=== PATIENT | male | born 1965 | race Caucasian/White ===

== ENCOUNTER 2024-12-20 07:34 | Outpatient (CLI) | payer BC, SELFPAY ==
--- OUTSIDE RECORDS SUMMARY | 2024-10-30 18:41 | XMS_ITS | Encounter Summary ---
Author Organization [facility] Address [address] [place] [address] Care Team Providers Care [employer] Supervisor Name Role Phone Provider, No Known Primary Care Provider Unavail able Reason for Referral * Diagnostic Imaging (Routine) - Closed Specialty Diagnoses / Procedures Referred By Contac t Referred To Contact Diagnoses Contusion of left lower extremity, initial encounter Swelling of left lower extremity Procedures Duplex Venous Lower Extremity - Left CAR Wang Alatorre MD [address] [place] [address] Phone: tel: fax: Referral ID Status Reason Start Date Expiration Date Visits Re quested Visits Authorized [id number] Closed 10/30/2024 01/29/2026 1 1 Reason for Visit * Reason Comments Leg Swelling Encounter Details Date Type Department Care Team (Late st Contact Info) Description 10/30/2024 6:41 PM EDT - 10/30/2024 7:46 PM EDT Emergency [facility] [address] [place] [id number] Wang Alatorre MD [address] [place] [address] Contusion of left lower extremity, initial encounter (Primary Dx); Swelling of left lower extremity; History of stroke Discharge Disposition: Home or Self Care Social History Tobacco Use Types Packs/Day Years Used Date Smoking Tobacco: Every Day Cigarettes Smokeless Tobacco: Current Snuff Comments:one pack every 3-4 days. smoked for 40 years Alcohol Use Standard Drinks/Week Comments Yes 0 (1 standard drink = 0.6 oz pur e alcohol) rare AUDIT-C Answer Date Recorded Q1: How often do you have a drink containing alc ohol? Monthly or less 10/20/2024 Q2: How many drinks containi ng alcohol do you have on a typical day when you are drinking? 1 or 2 10/20/2024 Q3: How often do you have si x or more drinks on one occasion? Never 10/20/2024 Abuse Screen Answer Date Recorded Feels Unsafe at Home or Work/School no 10/30/2024 Feels Threatened by Someone no 10/13 Does Anyone Try to Keep You From Having Contact with Others or Doing Things Outside Your Home? no 10/30/2024 Physical Signs of Abuse Present no 10/30/2024 Housing Stability Answer Date Recorded Current Living Arrangements home 10/2024 Potentially Unsafe Housing Conditions Not on radha e 10/20/2024 Family and Community Support Answer Rosendo e Recorded Help with Day-to-Day Activities Not on file 12/23/2022 Lonely or Isolated Not on file 12/23/2022 Employment Answer Date Recorded Do you want help finding or keeping work or a darcy b? Not on file 12/23/2022 Disabilities Answer Date Recorded Difficulty Concentrating, Remembering or Making Decisions no 10/20/2024 Difficulty Managing Errands Independently no 10/20/2024 Education Answer Date Recorded Help with school or training? Not on file Preferred Language Not on file 12/23/2022 Sex and Gender Information Value Date Recorded Sex Assigned at Not on file Legal Sex Male 11:47 AM EDT Gender Identity Not on file Sexual Orientation Not on file documented as of this encounter Last Filed Vital Signs Vital Sign Reading Time Taken Comments Blood Pressure 151/96 10/30/2024 6:29 PM EDT Pulse 75 10/30/2024 6:29 PM EDT Temperature 37 C (98.6 F) 10/30/2024 6:29 PM EDT Respiratory Rate 16 10/30/2024 6:29 PM EDT Oxygen Saturation 99% 10/30/2024 6:29 PM EDT Inhaled Oxygen Concentration - - Weight 111 kg (245 lb) 10/30/2024 6:29 PM EDT Height 177.8 cm (5' 10 ) 10/30/2024 6:29 PM EDT Body Mass Index 35.15 10/30/2024 6:29 PM EDT documented in this encounter Functional Status * Calculated C-SSRS Risk Score (Lifetime/Recent) Answer Date of Assessment Author No Risk Indicated 10/30/2024 6:29 PM EDT Etta Tran RN * Norris Suicide Severity Rating Scale (Screener/Recent Self-Report) Question Answer Date of Assessment Author 1. Wish to be (Past 1 Month) No 025 6:29 PM EDT Fernie Tran RN 2. Non-Specific Active Suici jolene Thoughts (Past 1 Month) No 10/30/2024 6:29 PM EDT Fernie Tran RN 6. Suicidal Behavior (Lifetime) No 6:29 PM EDT Fernie Tran RN documented as of this encounter Discharge Instructions * Discharge Instructions* Wang Alatorre MD - 10/30/2024 7:34 PM EDT If you have a Duplex Venous study ordered and have not received a phone call to schedule this test by 10:00 am tomorrow, please call. [phone] (Wednesday - Wednesday) [phone] (Weekends) * Attachments The following attachments cannot be sent through Care Everywhere. * Contusion (Chilean) documented in this encounter Medications at Time of Discharge aspirin 81 MG EC tablet Take 1 tablet by mouth Daily. 30 tablet 1 10/20/2024 rosuvastatin (Crestor) 20 MG tablet Take 2 tablets by mouth Every Night. 180 tablet 10/20/2024 documented as of this encounter ED Notes * Wang Alatorre MD - 10/30/2024 7:46 PM EDT Subjective History of Present Illness 59-year-old male presents for evaluation of leg discoloration. Of note, I did a thorough review of the patient's records prior to evaluating him. He was recently admitted at the hospital here at our facility from October 19 through October 20 for acute ischemic stroke. He received TNK. Fortunately, he was discharged without any significant residual deficits. This morning, after waking up he noted discoloration and what appeared to be bruising to the medial aspect of his left foot and heel region.He was concerned and as a result came here to the emergency department to be evaluated. He denies any pain to the area. He denies any preceding injury or trauma. He is unsure as to what may have caused the discoloration to occur. He is ambulatory. Review of Systems Skin: Positive for color change. All other systems reviewed and are negative. Past Medical History: Diagnosis Date Arthritis Back pain Cataracts, bilateral Coronary artery disease Diverticulitis GERD (gastroesophageal reflux disease) High triglycerides History of heart attack History of kidney stones History of skull fracture U[place]ER [place] (hard of hearing) Leaky heart valve Smoker Wears glasses Allergies Allergen Reactions Benadryl [Diphenhydramine Hcl] Anaphylaxis Latex Other (See Comments) Added based on information entered during case entry, please review and add reactions, type, and severity as needed-blood blisters Past Surgical History: Procedure Laterality Date COLON RESECTION N/A 12/29/2017 Procedure: OPEN LOW ANTERIOR COLON RESECTION; Surgeon: Armen Peralta MD; Location: [facility]; Service: General COLON SURGERY times 2 COLONOSCOPY 11-26-17 KIDNEY SURGERY Left Family History Problem Relation Age of Onset Diabetes Mother COPD Mother Emphysema Mother Heart disease Mother Asthma Mother Hypertension Mother Heart failure Father No Known Problems Sister No Known Problems Brother No Known Problems Maternal Grandmother No Known Problems Maternal Grandfather No Known Problems Paternal Grandmother No Known Problems Paternal Grandfather Social History Socioeconomic History Marital status: Tobacco Use Smoking status: Every Day Types: Cigarettes Smokeless tobacco: Current Types: Snuff Tobacco comments: one pack every 3-4 days. smoked for 40 years Vaping Use Vaping status: Never Used Substance and Sexual Activity Alcohol use: Yes Comment: rare Drug use: No Sexual activity: Defer Objective Physical Exam Vitals and nursing note reviewed. Constitutional: General: He is not in acute distress. Appearance: He is well-developed. He is obese. He is not diaphoretic. Comments: Nontoxic-appearing male HENT: Head: Normocephalic and atraumatic. Neck: Vascular: No JVD. Cardiovascular: Rate and Rhythm: Normal rate and regular rhythm. Heart sounds: Normal heart sounds. No murmur heard. No friction rub. No gallop. Pulmonary: Effort: Pulmonary effort is normal. No respiratory distress. Breath sounds: Normal breath sounds. No wheezing or rales. Abdominal: General: Bowel sounds are normal. There is no distension. Palpations: Abdomen is soft. There is no mass. Tenderness: There is no abdominal tenderness. There is no guarding. Musculoskeletal: General: Normal range of motion. Comments: Minimal soft tissue swelling noted to distal aspect of left lower leg and foot when compared to contralateral side on visual inspection, negative Homans sign, no palpable cords Skin: Comments: Mild bruising and skin discoloration noted to medial aspect of left heel, no warmth present, no purulent drainage, no crepitus, no pain out of proportion to exam Good distal perfusion to the left foot, no coolness to touch Neurological: Mental Status: He is alert and oriented to person, place, and time. Comments: Awake, alert, and oriented x3, clear and fluent speech, no ataxia or dysmetria, normal gait, neurovascularly intact distally in all fours with bounding distal pulses and normal sensation, 5out of 5 strength in all fours, no cranial nerve deficits noted with cranial nerves II through XII grossly intact Psychiatric: Mood and Affect: Mood normal. Thought Content: Thought content normal. Judgment: Judgment normal. Procedures ED Course ED Course as of 10/30/245 WedOct 30, [id number] 59-year-old male presents for evaluation of leg discoloration. Of note, the patient was admitted to the hospital here at our facility from October 19 through October 20 for acute ischemic stroke. He did receive TNK. He fortunately was discharged with no significant residual deficits. This morning, he noted discoloration and what appeared to be bruising to the medial aspect of his left foot. Hewas concerned and as result came here to the ED to be evaluated. He denies any pain to the area. Nopreceding trauma or injury. On arrival, he is very well-appearing. No focal neurological deficits present. Left lower extremity is neurovascularly intact distally with bounding distal pulses and normal sensation noted. Good distal perfusion noted. His foot is not cool to touch. He does have mild bruising and discoloration noted to the medial aspect of his left heel. There is no warmth present. Nopurulent drainage. No crepitus. No pain out of portion to exam. No exam findings to suggest infectious etiology. Labs interpreted independently by me are bland/unrevealing. DVT is still on the differential diagnosis. Unfortunately, I am unable to obtain a Doppler ultrasound at this hour. As a result, the patient was given 1 dose of Lovenox and an order was placed for him to return to the emergency department tomorrow for a formal ultrasound to rule out DVT. We discussed other potential etiologies for the discoloration. Doubt emergent central process at this time. Doubt arterial insufficiency. No exam or historical findings to suggest compartment syndrome. He will follow-up tomorrow as directed. Agreeable with plan and given appropriate strict return precautions. [DD] ED Course User Index [DD] Wang Alatorre MD Recent Results (from the past 24 hours) Comprehensive Metabolic Panel Collection Time: 10/30/24 6:55 PM Specimen: Blood Result Value Ref Range Glucose 102 (H) 65 - 99 mg/dL BUN 9.4 6.0 - 20.0 mg/dL Creatinine 1.08 0.76 - 1.27 mg/dL Sodium 139 136 - 145 mmol/L Potassium 4.2 3.5 - 5.2 mmol/L Chloride 105 98 - 107 mmol/L CO2 23.5 22.0 - 29.0 mmol/L Calcium 9.1 8.6 - 10.5 mg/dL Total Protein 6.7 6.0 - 8.5 g/dL Albumin 4.1 3.5 - 5.2 g/dL ALT (SGPT) 24 1 - 41 U/L AST (SGOT) 22 1 - 40 U/L Alkaline Phosphatase 68 39 - 117 U/L Total Bilirubin 0.3 0.0 - 1.2 mg/dL Globulin 2.6 gm/dL A/G Ratio 1.6 g/dL BUN/Creatinine Ratio 8.7 7.0 - 25.0 Anion Gap 10.5 5.0 - 15.0 mmol/L eGFR 79.1 >60.0 mL/min/1.73 CBC Auto Differential Collection Time: 10/30/24 6:55 PM Specimen: Blood Result Value Ref Range WBC 11.29 (H) 3.40 - 10.80 10*3/mm3 RBC 4.88 4.14 - 5.80 10*6/mm3 Hemoglobin 16.0 13.0 - 17.7 g/dL Hematocrit 46.7 37.5 - 51.0 % MCV 95.7 79.0 - 97.0 fL MCH 32.8 26.6 - 33.0 pg MCHC 34.3 31.5 - 35.7 g/dL RDW 11.5 (L) 12.3 - 15.4 % RDW-SD 40.4 37.0 - 54.0 fl MPV 10.5 6.0 - 12.0 fL Platelets 197 140 - 450 10*3/mm3 Neutrophil % 64.7 42.7 - 76.0 % Lymphocyte % 24.4 19.6 - 45.3 % Monocyte % 8.2 5.0 - 12.0 % Eosinophil % 1.7 0.3 - 6.2 % Basophil % 0.7 0.0 - 1.5 % Immature Grans % 0.3 0.0 - 0.5 % Neutrophils, Absolute 7.31 (H) 1.70 - 7.00 10*3/mm3 Lymphocytes, Absolute 2.75 0.70 - 3.10 10*3/mm3 Monocytes, Absolute 0.93 (H) 0.10 - 0.90 10*3/mm3 Eosinophils, Absolute 0.19 0.00 - 0.40 10*3/mm3 Basophils, Absolute 0.08 0.00 - 0.20 10*3/mm3 Immature Grans, Absolute 0.03 0.00 - 0.05 10*3/mm3 nRBC 0.0 0.0 - 0.2 /100 WBC Note: In addition to lab results from this visit, the labs listed above may include labs taken at another facility or during a different encounter within the last 24 hours. Please correlate lab timeswith ED admission and discharge times for further clarification of the services performed during this visit. No orders to display Vitals: 10/30/24 1829 BP: 151/96 BP Location: Left arm Patient Position: Sitting Pulse: 75 Resp: 16 Temp: 98.6 ??F (37 ??C) SpO2: 99% Weight: 111 kg (245 lb) Height: 177.8 cm (70 ) Medications enoxaparin sodium (LOVENOX) syringe 105 mg (105 mg Subcutaneous Given 10/30/241938) ECG/EMG Results (last 24 hours) No results found for the last 24 hours. No orders to display Medical Decision Making Problems Addressed: Contusion of left lower extremity, initial encounter: complicated acute illness or injury History of stroke: complicated acute illness or injury Swelling of left lower extremity: complicated acute illness or injury Amount and/or Complexity of Data Reviewed Labs: ordered. Risk Prescription drug management. Final diagnoses: Contusion of left lower extremity, initial encounter Swelling of left lower extremity History of stroke ED Disposition ED Disposition ED Disposition Discharge Condition Stable Comment -- PATIENT CONNECTION - [place] [phone] In 1 week Medication List No changes were made to your prescriptions during this visit. Wang Alatorre MD 10/30/24 [id number] documented in this encounter Plan of Treatment Upcoming Encounters Date Type Department Care Team (Late st Contact Info) Description 01/17/2025 10:00 AM EST Office Visit [facility] [address] [place] [address] Crystal Pederson, SOUR BLE[employer]ING PLEATER [address] [facility] [address] [address] documented as of this encounter Procedures Procedure Name Priority Date/Time Associated Diagnosis Comments CBC WITH AUTO DIFFERENTIAL STAT 10/30/2024 6:55 PM EDT CBC AND DIFFERENTIAL STAT 10/30/2024 6:55 PM EDT COMPREHENSIVE METABOLIC PANEL STAT 10/30/2024 6:55 PM EDT documented in this encounter Results * Duplex Venous Lower Extremity - Left CAR (10/31/2024 11:15 AM EDT) Right Common Femoral Spont Y Right Common Femoral Phasic Y Right Common Femoral Augment Y Left Common Femoral Spont Y Left Common Femoral Phasic Y Left Common Femoral Compress C Left Common Femoral Augment Y Left Saphenofemoral Junction Spont Y Left Saphenofemoral Junction Phasic Y Left Saphenofemoral Junction Compress C Left Saphenofemoral Junction Augment Y Left Profunda Femoral Compress C Left Proximal Femoral Spont Y Left Proximal Femoral Phasic Y Left Proximal Femoral Compress C Left Proximal Femoral Augment Y Left Mid Femoral Spont Y Left Mid Femoral Phasic Y Left Mid Femoral Compress C Left Mid Femoral Augment Y Left Distal Femoral Spont Y Left Distal Femoral Phasic Y Left Distal Femoral Compress C Left Distal Femoral Augment Y Left Popliteal Spont Y Left Popliteal Phasic Y Left Popliteal Compress C Left Popliteal Augment Y Left Posterior Tibial Compress C Left Peroneal Compress C Left Gastronemius Compress C Left Greater Saph AK Compress C Left Greater Saph BK Compress C Left Lesser Saph Compress C Anatomical Region Laterality Modality Ultrasound Narrative 10/31/2024 2:25 PM EDT Normal left lower extremity venous duplex scan. Study Impression Left Common Femoral: No deep vein thrombosis noted. Left Saphenofemoral Junction: No superficial thrombophlebitis noted. Left Proximal Femoral: No deep vein thrombosis noted. Left Mid Femoral: No deep vein thrombosis noted. Left Distal Femoral: No deep vein thrombosis noted. Left Popliteal: No deep vein thrombosis noted. Left Posterior Tibial: No deep vein thrombosis noted. Left Peroneal: No deep vein thrombosis noted. Left Gastrocnemius: No deep vein thrombosis noted. Left Great Saphenous Above Knee: No superficial thrombophlebitis noted. Left Great Saphenous Below Knee: No superficial thrombophlebitis noted. Study Findings - Left Left sided additional findings: All left lower extremity deep and superficial veins appear patent and compressible during time of exam. No prior exams for comparison. Additional Study Details The study is technically good for diagnosis. us Wang Alatorre MD CV VASCULAR ORDERABLES Fin al Result * (ABNORMAL) CBC Auto Differential (10/30/2024 6:55 PM EDT) WBC 11.29(H) 3.40 - 10.80 10*3/mm3 10/30/2024 7:08 PM EDT [facility] RBC 4.88 4.14 - 5.80 10*6/mm3 10/30/2024 7:08 PM EDT [facility] Hemoglobin 16.0 13.0 - 17.7 g/dL 10/30/2024 7:08 PM EDT [facility] Hematocrit 46.7 37.5 - 51.0 % 10/30/2024 7:08 PM EDT [facility] MCV 95.7 79.0 - 97.0 fL 10/30/2024 7:08 PM EDT [facility] MCH 32.8 26.6 - 33.0 pg 10/30/2024 7:08 PM EDT [facility] MCHC 34.3 31.5 - 35.7 g/dL 10/30/2024 7:[facility] RDW 11.5(L) 12.3 - 15.4 % 10/30/2024 7:[facility] RDW-SD 40.4 37.0 - 54.0 fl 10/30/2024 7:08 [facility] MPV 10.5 6.0 - 12.0 fL 10/30/2024 7:08 [facility] Platelets 197 140 - 450 10*3/mm3 10/30/2024 7:08 [facility] Neutrophil % 64.7 42.7 - 76.0 % 10/30/2024 7:08 PM EDT [facility] Lymphocyte % 24.4 19.6 - 45.3 % 10/30/2024 7:08 [facility] Monocyte % 8.2 5.0 - 12.0 % 10/30/2024 7:08 PM EDT [facility] Eosinophil % 1.7 0.3 - 6.2 % 10/30/2024 7:08 PM EDT [facility] Basophil % 0.7 0.0 - 1.5 % 10/30/2024 7:08 PM EDT [facility] Immature Grans % 0.3 0.0 - 0.5 % 10/30/2024 7:08 PM EDT [facility] Neutrophils, Absolute 7.31(H) 1.70 - 7.00 10*3/mm3 10/30/2024 7:08 PM EDT [facility] Lymphocytes, Absolute 2.75 0.70 - 3.10 10*3/mm3 10/30/2024 7:08 PM EDT [facility] Monocytes, Absolute 0.93(H) 0.10 - 0.90 10*3/mm3 10/30/2024 7:08 PM EDT [facility] Eosinophils, Absolute 0.19 0.00 - 0.40 10*3/mm3 10/30/2024 7:08 PM EDT [facility] Basophils, Absolute 0.08 0.00 - 0.20 10*3/mm3 10/30/2024 7:08 PM EDT [facility] Immature Grans, Absolute 0.03 0.00 - 0.05 10*3/mm3 10/30/2024 7:08 PM EDT [facility] nRBC 0.0 0.0 - 0.2 /100 WBC 10/30/2024 7:08 PM EDT [facility] Blood Venipuncture / Unknown 10/30/2024 6:55 PM EDT 10/30/2024 7:03 PM EDT Wang Alatorre MD LAB BLOOD ORDERABLES Final Result [facility]
[address] [place] [address], * (ABNORMAL) Comprehensive Metabolic Panel (10/30/2024 6:55 PM EDT) Glucose 102(H) 65 - 99 mg/dL 10/30/2024 7:30 PM EDT [facility] BUN 9.4 6.0 - 20.0 mg/dL 10/30/2024 7:30 PM EDT [facility] Creatinine 1.08 0.76 - 1.27 mg/dL 10/30/2024 7:30 PM EDT [facility] Sodium 139 136 - 145 mmol/L 10/30/2024 7:30 PM EDT [facility] Potassium 4.2 3.5 - 5.2 mmol/L 10/30/2024 7:30 PM T [facility] Comment:Specimen hemolyzed. Result may be falsely elevated. Chloride 105 98 - 107 mmol/L 10/30/2024 7:30 PM EDT [facility] CO2 23.5 22.0 - 29.0 mmol/L 10/30/2024 7:30 PM EDT [facility] Calcium 9.1 8.6 - 10.5 mg/dL 10/30/2024 7:30 PM EDT [facility] Total Protein 6.7 6.0 - 8.5 g/dL 10/30/2024 7:30 PM EDT [facility] Albumin 4.1 3.5 - 5.2 g/dL 10/30/2024 7:30 PM EDT [facility] ALT (SGPT) 24 1 - 41 U/L 10/30/2024 7:30 PM EDT [facility] AST (SGOT) 22 1 - 40 U/L 10/30/2024 7:30 PM T [facility] Comment:Specimen hemolyzed. Result may be falsely elevated. Alkaline Phosphatase 68 39 - 117 U/L 10/30/2024 7:30 PM EDT [facility] Total Bilirubin 0.3 0.0 - 1.2 mg/dL 10/30/2024 7:30 PM EDT [facility] Globulin 2.6 gm/dL 10/30/2024 7:30 PM EDT [facility] Comment:Calculated Result A/G Ratio 1.6 g/dL 10/30/2024 7:30 PM EDT [facility] BUN/Creatinine Ratio 8.7 7.0 - 25.0 10/30/2024 7:30 PM T [facility] Anion Gap 10.5 5.0 - 15.0 mmol/L 10/30/2024 7:30 PM EDT [facility] eGFR 79.1 >60.0 mL/min/1.7 3 10/30/2024 7:30 PM EDT [facility] Blood Venipuncture / Unknown 10/30/2024 6:55 PM EDT 10/30/2024 7:04 PM EDT Narrative [facility] - 10/30/2024 7:30 PM EDT GFR Categories in Chronic Kidney Disease (CKD) GFR Category GFR (mL/min/1.73) Interpretation G1 90 or greater Normal or high (1) G2 60-89 Mild decrease (1) G3a 45-59 Mild to moderate decrease G3b 30-44 Moderate to severe decrease G4 15-29 Severe decrease G5 14 or less Kidney failure (1)In the absence of evidence of kidney disease, neither GFR category G1 or G2 fulfill the criteria for CKD. eGFR calculation 2020 CKD-EPI creatinine equation, which does not include race as a factor Wang Alatorre MD LAB BLOOD ORDERABLES Final Result [facility]
[address] [place] [address], documented in this encounter Visit Diagnoses Diagnosis Contusion of left lower extremity, initial encounter- Primary Swelling of left lower extremity History of stroke Transient ischemic attack (TIA), and cerebral infarction without residual deficits Contusion of left lower extremity, initial encounter Swelling of left lower extremity documented in this encounter Administered Medications Inactive Administered Medications - up to 3 most recent administrations Medication Order MAR Action Action Date Dose Rate Site enoxaparin sodium (LOVENOX) syringe 105 mg 105 mg (rounded from 111 mg = 1 mg/kg 111 kg), Subcutaneous, Once, On Wed10/30/24 at 1948, For 1 dose, Give subcutaneous in abdomen only. Do not massage site after injection., Indications: DVT/PE (active thrombosis)Indications:DV T/PE (active thrombosis) Given 10/30/2024 7:39 PM EDT 105 mg Right Upper Abdomen documented in this encounter Active and Recently Administered Medications Times are shown in EDT. Scheduled Medication Order 10/28/2024 10/29/2024 10/30/2024 enoxaparin sodium (LOVENOX) syringe 105 mg (COMPLETED) 105 mg (rounded from 111 mg = 1 mg/kg 111 kg), Subcutaneous, Once, On Wed10/30/24 at 1948, For 1 dose, Give subcutaneous in abdomen only. Do not massage site after injection., Indications: DVT/PE (active thrombosis) 1938 (Given - Provid er: Ibeth Yousif, RN) documented in this encounter Care Teams [employer] Supervisor Relationship Specialty Start Date End Date Provider, [place] [address] PCP - General 01/19/23 documented as of this encounter
--- OUTSIDE RECORDS SUMMARY | 2024-10-31 10:50 | XMS_ITS | Encounter Summary ---
Author Organization [facility] Address [address] [place] [address] Care Team Providers Care Metal Control Coordinator Name Role Phone Provider, No Known Primary Care Provider Unavail able Reason for Referral * Diagnostic Imaging (Routine) - Closed Specialty Diagnoses / Procedures Referred By Elviraac t Referred To Contact Diagnoses Contusion of left lower extremity, initial encounter Swelling of left lower extremity Procedures Duplex Venous Lower Extremity - Left CAR Wang Alatorre MD [address] [place] [address] Phone: tel: fax: Referral ID Status Reason Start Date Expiration Date Visits Re quested Visits Authorized Closed 10/30/2024 01/29/2026 1 1 Reason for Visit * Diagnostic Imaging (Routine) - Closed Specialty Diagnoses / Procedures Referred By Fabiola mesa Referred To Contact Diagnoses Contusion of left lower extremity, initial encounter Swelling of left lower extremity Procedures Duplex Venous Lower Extremity - Left CAR Wang Alatorre MD [address] [place] [address] Phone: tel: fax: Referral ID Status Reason Start Date Expiration Date Visits Re quested Visits Authorized Closed 10/30/2024 01/29/2026 1 1 Encounter Details Date Type Department Care Team (Late st Contact Info) Description 10/31/2024 10:50 AM EDT - 10/31/2024 11:59 PM EDT Hospital Encounter [facility] [address] [facility] [address] [place] [address] Wang Alatorre MD [address] [place] [id number] Contusion of left lower extremity, initial encounter; Swelling of left lower extremity Discharge Disposition: Home or Self Care Social [...] on file documented as of this encounter Medications at Time of Discharge aspirin 81 MG EC tablet Take 1 tablet by mouth Daily. 30 tablet 1 10/20/2024 rosuvastatin (Crestor) 20 MG tablet Take 2 tablets by mouth Every Night. 180 tablet 10/20/2024 documented as of this encounter Plan of Treatment Upcoming Encounters Date Type Department Care Team (Late st Contact Info) Description 01/17/2025 10:00 AM EST Office Visit [facility] [address] [facility] [address] [place] [address] [address] Pederson, MARGARET [address] [facility] [address] [place] [id number] documented as of this encounter Procedures Procedure Name Priority Date/Time Associated Diagnosis Comments DUPLEX VENOUS LOWER EXTREMITY LEFT CAR Routine 10/31/2024 11:15 AM EDT Contusion of left lower extremity, initial encounter Swelling of left lower extremity documented in this encounter Results * Duplex [...] MD CV VASCULAR ORDERABLES Fin al Result documented in this encounter Visit Diagnoses Diagnosis Contusion of left lower extremity, initial encounter Swelling of left lower extremity documented in this encounter Care Teams Metal Control Coordinator Relationship Specialty Start Date End Date Provider, [place] [address] PCP - General 01/19/23 documented as of this encounter
--- OUTSIDE RECORDS SUMMARY | 2024-12-20 07:38 | XMS_ITS | Clinical Summary ---
Author Organization [facility] Address [address] [place] [address] Care Team Providers Care Teacher Aide Clerical Name Role Phone Provider, No Known Primary Care Provider Unavail able Allergies Active Allergy Reactions Criticality Noted Date Comments Diphenhydramine Hcl Anaphylaxis High 12/29/2017 Latex Other (See Comments) 12/23/2017 Added based on information entered during case entry, please review and add reactions, type, and severity as needed-blood blisters Medications aspirin 81 MG EC tablet Take 1 tablet by mouth Daily. 30 tablet 1 10/20/2024 Active rosuvastatin (Crestor) 20 MG tablet Take 2 tablets by mouth Every Night. 180 tablet 10/20/2024 Active Active Problems Problem Noted Date Diagnosed Date Palpitations 07/10/2020 Overview (07/10/2020): ? Afib at age 19 yo 30-day event monitor 06/01/2020: 1 for 19 days. No arrhythmias. Patient symptoms associated with sinus. Syncope and collapse 06/04/2020 Overview (06/04/2020): Echocardiogram 06/03/2020: EF 72%, RVSP 31 mmHg, mild dilation of the aortic root, grade 1 diastolic dysfunction, no significant valvular disease. Leukocytosis 12/30/2017 Acute postoperative pain 12/30/2017 Diverticulitis 12/29/2017 S/P open sigmoid resection 12/29/2017 Prediabetes 12/29/2017 Abnormal EKG 12/27/2017 Tobacco abuse 12/27/2017 Class 2 obesity in adult 12/27/2017 Coronary artery disease Overview (07/10/2020): Reported KS 30's. No hx of interventions. Myocardial perfusion stress test 06/14/2020: No ischemia, EF 68% Echo 06/01/20: with normal EF, mild dilation of aortic root, grade 1 diastolic dysfunction. No significant valvular disease. GERD (gastroesophageal reflux disease) Resolved Problems Problem Noted Date Diagnosed Date Resolved Date Acute CVA (cerebrovascular accident) 10/19/2024 10/20/2024 Encounters Date Type Department Care Team Description 10/31/2024 10:50 AM EDT - 10/31/2024 11:59 PM EDT Hospital Encounter [facility]VAS[facility] OUTPATIENT [facility] [address] [facility] [address] [place] [address] Wang Alatorre MD Contusion of left lower extremity, initial encounter; Swelling of left lower extremity Discharge Disposition: Home or Self Care 10/30/2024 6:41 PM EDT - 10/30/2024 7:46 PM EDT Emergency [facility] EMERGENCY DEPARTMENT [address] [place] [id number] Wang Alatorre MD Contusion of left lower extremity, initial encounter (Primary Dx); Swelling of left lower extremity; History of stroke Discharge Disposition: Home or Self Care 10/30/2024 Travel 10/19/2024 7:33 AM EDT - 10/20/2024 2:40 PM EDT Hospital Encounter [facility] 2B ICU [address] [place] [address] Wang Alatorre MD Tzouanakis, Alexander E, MD Acute ischemic stroke (Primary Dx) Discharge Disposition: Home or Self Care 10/19/2024 Travel from Last 3 Months Family History Medical History Relation Name Comments No Known Problems Brother Heart failure Father No Known Problems Maternal Grandfather No Known Problems Maternal Grandmother Asthma Mother COPD Mother Diabetes Mother Emphysema Mother Heart disease Mother Hypertension Mother No Known Problems Paternal Grandfather No Known Problems Paternal Grandmother No Known Problems Sister Relation Name Status Comments Brother Alive Father Maternal Grandfather Maternal Grandmother Mother Alive Paternal Grandfather Paternal Grandmother Sister Alive Social History Tobacco Use Types Packs/Day Years [...] on file Sexual Orientation Not on file Last Filed Vital Signs Vital Sign Reading [...] Mass Index 35.15 10/30/2024 6:29 PM EDT Plan of Treatment Upcoming Encounters Date Type Department Care Team (Late st Contact Info) Description 01/17/2025 10:00 AM EST Office Visit [facility] NEUROLOGY [address] [facility] [address] [place] [address] Crystal Pederson, ROLL CARRIER [address] [facility] [address] [address] Health Maintenance Due Date Last Done Comments Pneumococcal Vaccine 50+ (1 of 2 - PCV) 02/03/1984 TDAP/TD VACCINES (1 - Tdap) 02/03/1984 COLOGUARD 2010 COLON CANCER SCREENING [address] COLONOGRAPHY 2010 FECAL OCCULT BLOOD TEST 2010 FIT Testing (1 year) 2010 ZOSTER VACCINE (1 of 2) 2015 ANNUAL PHYSICAL 12/23/2017 HEPATITIS C SCREENING 12/23/2017 INFLUENZA VACCINE 10/13/2024 COLONOSCOPY 02/11/2033 02/11/2023 COLORECTAL CANCER SCREENING 02/11/2033 Procedures Procedure Name Priority Date/Time Associated Diagnosis Comments DUPLEX VENOUS LOWER EXTREMITY LEFT CAR Routine 10/31/2024 11:15 AM EDT Contusion of left lower extremity, initial encounter Swelling of left lower extremity CBC AND DIFFERENTIAL STAT 10/30/2024 6:55 PM EDT CBC WITH AUTO DIFFERENTIAL STAT 10/30/2024 6:55 PM EDT COMPREHENSIVE METABOLIC PANEL STAT 10/30/2024 6:55 PM EDT POCT GLUCOSE FINGERSTICK Routine 10/20/2024 11:52 AM EDT XR CHEST 1 VW Routine 10/20/2024 9:[address] HEAD WO CONTRAST Routine 10/20/2024 8 :33 AM EDT POCT GLUCOSE FINGERSTICK Routine 10/20/2024 5:09 AM EDT CBC AND DIFFERENTIAL Routine 10/20/2024 2:18 AM EDT CBC WITH AUTO DIFFERENTIAL Routine 10/20/2024 2:18 AM EDT BASIC METABOLIC PANEL Routine 10/20/2024 2:18 AM EDT LIPID PANEL Routine 10/20/2024 2:18 AM EDT HEMOGLOBIN A1C Routine 10/20/2024 2:18 AM EDT MRI BRAIN WO CONTRAST Routine 10/20/2024 1:02 AM EDT POCT GLUCOSE FINGERSTICK Routine 10/19/2024 11:09 PM EDT POCT GLUCOSE FINGERSTICK Routine 10/19/2024 8:06 PM EDT POCT GLUCOSE FINGERSTICK Routine 10/19/2024 11:43 AM EDT ECHO COMPLETE W/ DOPPLER AND COLOR FLOW Routine 10/19/2024 11:41 AM EDT SCANNED - TELEMETRY 10/19/2024 8 :41 AM EDT ECG 12-LEAD STAT 10/19/2024 8:39 AM EDT URINALYSIS W/ CULTURE IF INDICATED STAT 10/19/2024 8:[address] ABDOMEN PELVIS W CONTRAST STAT 10/19/2024 8:[address] ANGIOGRAM CHEST W WO CONTRAST STAT 10/19/2024 8:[address] CEREBRAL PERFUSION W WO CONTRAST STAT 10/19/2024 8:[address] ANGIOGRAM NECK STAT 10/19/2024 8:[address] ANGIOGRAM HEAD W AI ANALYSIS OF LVO STAT 10/19/2024 8:13 AM EDT LIGHT BLUE TOP STAT 10/19/2024 7:48 AM EDT KHAN TOP STAT 10/19/2024 7:48 AM EDT GOLD TOP - SST STAT 10/19/2024 7:48 AM EDT LAVENDER TOP STAT 10/19/2024 7:48 AM EDT DK GREEN TOP STAT 10/19/2024 7:48 AM EDT CBC AND DIFFERENTIAL STAT 10/19/2024 7:48 AM EDT MAGNESIUM STAT 10/19/2024 7:48 AM EDT TSH RFX ON ABNORMAL TO FREE T4 STAT 10/19/2024 7:48 AM EDT COMPREHENSIVE METABOLIC PANEL STAT 10/19/2024 7:48 AM EDT CBC WITH AUTO DIFFERENTIAL STAT 10/19/2024 7:48 AM EDT APTT STAT 10/19/2024 7:48 AM EDT PROTIME-INR STAT 10/19/2024 7:48 AM EDT RAINBOW DRAW STAT 10/19/2024 7:48 AM EDT POCT [id number] CT STAT 10/19/2024 7:45 AM EDT KS CRITICAL CARE ILL/INJURED PATIENT INIT 30-74 MIN Routine 10/19/2024 7:[address] HEAD WO CONTRAST STROKE PROTOCOL STAT 10/19/2024 7:42 AM EDT SCANNED - COLONOSCOPY 02/11/2023 from Last 3 Months or Most Recently Relevant to Health Maintenance Results * Duplex Venous Lower Extremity - [...] The study is technically good for diagnosis. Wang Alatorre MD CV VASCULAR ORDERABLES Fin al Result * (ABNORMAL) CBC Auto Differential (10/30/2024 6:55 PM EDT) Only the most recent of3 resultswithin the time period is included. WBC 11.29(H) 3.40 - 10.80 10*3/mm3 10/30/2024 7:08 PM EDT [facility] RBC 4.88 4.14 - 5.80 10*6/mm3 10/30/2024 7:08 PM EDT [facility] Hemoglobin 16.0 13.0 - 17.7 g/dL 10/30/2024 7:08 PM EDT [facility] Hematocrit 46.7 37.5 - 51.0 % 10/30/2024 7:08 PM EDT [facility] MCV 95.7 79.0 - 97.0 fL 10/30/2024 7:08 PM EDT [facility] MCH 32.8 26.6 - 33.0 pg 10/30/2024 7:08 PM EDT [facility] MCHC 34.3 31.5 - 35.7 g/dL 10/30/2024 7:08 PM EDT [facility] RDW 11.5(L) 12.3 - 15.4 % 10/30/2024 7:08 PM EDT [facility] RDW-SD 40.4 37.0 - 54.0 fl 10/30/2024 7:08 PM EDT [facility] MPV 10.5 6.0 - 12.0 fL 10/30/2024 7:08 PM EDT [facility] Platelets 197 140 - 450 10*3/mm3 10/30/2024 7:08 PM [facility] Neutrophil % 64.7 42.7 - 76.0 % 10/30/2024 7:08 PM [facility] Lymphocyte % 24.4 19.6 - 45.3 % 10/30/2024 7:08 PM [facility] Monocyte % 8.2 5.0 - 12.0 % 10/30/2024 7:08 PM [facility] Eosinophil % 1.7 0.3 - 6.2 % 10/30/2024 7:08 PM [facility] Basophil % 0.7 0.0 - 1.5 % 10/30/2024 7:08 PM [facility] Immature Grans % 0.3 0.0 - 0.5 % 10/30/2024 7:08 PM [facility] Neutrophils, Absolute 7.31(H) 1.70 - 7.00 10*3/mm3 10/30/2024 7:08 PM [facility] Lymphocytes, Absolute 2.75 0.70 - 3.10 10*3/mm3 10/30/2024 7:08 PM [facility] Monocytes, Absolute 0.93(H) 0.10 - 0.90 10*3/mm3 10/30/2024 7:08 PM [facility] Eosinophils, Absolute 0.19 0.00 - 0.40 10*3/mm3 10/30/2024 7:08 PM [facility] Basophils, Absolute 0.08 0.00 - 0.20 10*3/mm3 10/30/2024 7:08 PM [facility] Immature Grans, Absolute 0.03 0.00 - 0.05 10*3/mm3 10/30/2024 7:08 PM [facility] nRBC 0.0 0.0 - 0.2 /100 WBC 10/30/2024 7:08 PM [facility] Blood Venipuncture / Unknown 10/30/2024 6:55 PM EDT 10/30/2024 7:03 PM EDT Wang Alatorre MD LAB BLOOD ORDERABLES Final Result [facility]
[address] [place] [address], * (ABNORMAL) Comprehensive Metabolic Panel (10/30/2024 6:55 PM EDT) Only the most recent of2 resultswithin the time period is included. Glucose 102(H) 65 - 99 mg/dL 10/30/2024 7:30 PM EDT [facility] BUN 9.4 6.0 - 20.0 mg/dL 10/30/2024 7:30 PM EDT [facility] Creatinine 1.08 0.76 - 1.27 mg/dL 10/30/2024 7:30 PM EDT [facility] Sodium 139 136 - 145 mmol/L 10/30/2024 7:30 PM EDT [facility] Potassium 4.2 3.5 - 5.2 mmol/L 10/30/2024 7:30 PM EDT [facility] Comment:Specimen hemolyzed. Result may be falsely elevated. Chloride 105 98 - 107 mmol/L 10/30/2024 7:30 PM EDT [facility] CO2 23.5 22.0 - 29.0 mmol/L 10/30/2024 7:30 PM EDT [facility] Calcium 9.1 8.6 - 10.5 mg/dL 10/30/2024 7:30 PM EDT [facility] Total Protein 6.7 6.0 - 8.5 g/dL 10/30/2024 7:30 PM EDT [facility] Albumin 4.1 3.5 - 5.2 g/dL 10/30/2024 7:30 PM EDT [facility] ALT (SGPT) 24 1 - 41 U/L 10/30/2024 7:30 PM EDT [facility] AST (SGOT) 22 1 - 40 U/L 10/30/2024 7:30 PM EDT [facility] Comment:Specimen hemolyzed. Result may be falsely elevated. Alkaline Phosphatase 68 39 - 117 U/L 10/30/2024 7:30 PM EDT [facility] Total Bilirubin 0.3 0.0 - 1.2 mg/dL 10/30/2024 7:30 PM EDT [facility] Globulin 2.6 gm/dL 10/30/2024 7:30 PM EDT [facility] Comment:Calculated Result A/G Ratio 1.6 g/dL 10/30/2024 7:30 PM EDT [facility] BUN/Creatinine Ratio 8.7 7.0 - 25.0 10/30/2024 7:30 PM EDT [facility] Anion Gap 10.5 5.0 - 15.0 mmol/L 10/30/2024 7:30 PM EDT [facility] eGFR 79.1 >60.0 mL/min/1.7 3 10/30/2024 7:30 PM EDT [facility] Blood Venipuncture / Unknown 10/30/2024 6:55 PM EDT 10/30/2024 7:04 PM EDT Narrative [facility] - 10/30/2024 7:30 PM EDT [...] does not include race as a factor us Wang Alatorre MD LAB BLOOD ORDERABLES Final Result [facility]
[address] [id number], * POC Glucose Once (10/20/2024 11:52 AM EDT) Only the most recent of5 resultswithin the time period is included. Glucose 121 70 - 130 mg/dL 10/20/2024 12:05 PM EDT [facility] Blood 10/20/2024 11:5 2 AM EDT 10/20/2024 12:05 PM EDT us Buddy Birmingham MD POINT OF CARE TEST ORD ERABLES Final Result [facility]
[address] [place] [address], * XR Chest 1 View (10/20/2024 9:13 AM EDT) Anatomical Region Laterality Modality Body N/A Radiographic Gely ging 10/20/2024 9:23 AM EDT Impressions 10/20/2024 9:24 AM EDT Impression: No evidence of active chest disease. Electronically Signed: Vaibhav Moctezuma MD 10/20/2024 9:24 AM EDT Workstation ID: [id number] Narrative 10/20/2024 9:24 AM EDT XR CHEST 1 VW Date of Exam: 10/20/2024 9:07 AM EDT Indication: eval for pna Comparison: 10/19/[address] scan. 12/23/2017 chest radiograph Findings: Prior CTA chest report described no acute abnormality. Today's exam shows the heart, mediastinum and pulmonary vasculature to appear within normal limits. Lungs appear normally expanded and clear. No edema, effusion or pneumothorax is seen. Procedure Note Vaibhav Moctezuma MD - 10/20/2024 XR CHEST 1 VW Date of Exam: 10/20/2024 9:07 AM EDT Indication: eval for pna Comparison: 10/19/[address] scan[address] 12/23/2017 chest radiograph Findings: Prior CTA chest report described no acute abnormality. Today's exam showsthe heart, mediastinum and pulmonary vasculature to appear within normallimits. Lungs appear normally expanded and clear. No edema, effusion orpneumothorax is seen. IMPRESSION: Impression: No evidence of active chest disease. Electronically Signed: Vaibhav Moctezuma MD 10/20/2024 9:24 AM EDT Workstation ID: [id number] Jj Kramer MD IM DIAGNOSTIC IMAGING ORDER INDIRA Final Result * CT Head Without Contrast (10/20/2024 8:33 AM EDT) Anatomical Region Laterality Modality Head N/A Computed Tomogra phy 10/20/2024 8:48 AM EDT Impressions 10/20/2024 8:49 AM EDT Impression: No acute intracranial findings. Electronically Signed: Natanael Collier MD 10/20/2024 8:49 AM EDT Workstation ID: [id number] Narrative 10/20/2024 8:[address] HEAD WO CONTRAST Date of Exam: 10/20/2024 8:24 AM EDT Indication: Stroke, follow up left arm weakness, right leg weakness, left sided sensory loss 24 Hours Post Thrombolytic Administration. Comparison: MRI brain 10/20/2024, CT 10/19/2024 Technique: Axial CT images were obtained of the head without contrast administration. Automated exposure control and iterative construction methods were used. Findings: There is no evidence of acute territorial infarction. There is no acute intracranial hemorrhage. There are no extra-axial collections. Ventricles and CSF spaces are symmetric. No mass effect nor hydrocephalus. Brain parenchyma appears normal for age. Paranasal sinuses and mastoid air cells are adequately aerated. Osseous structures and orbits appear intact. Procedure Note Natanael Collier MD - 10/20/2024 CT HEAD WO CONTRAST Date of Exam: 10/20/2024 8:24 AM EDT Indication: Stroke, follow up left arm weakness, right leg weakness, left sided sensory loss 24 Hours Post Thrombolytic Administration. Comparison: MRI brain 10/20/2024, CT 10/19/2024 Technique: Axial CT images were obtained of the head without contrastadministration. Automated exposure control and iterative constructionmethods were used. Findings: There is no evidence of acute territorial infarction. There is no acute intracranial hemorrhage. There are no extra-axialcollections. Ventricles and CSF spaces are symmetric. No mass effect norhydrocephalus. Brain parenchyma appears normal for age. Paranasal sinuses and mastoid air cells are adequately aerated. Osseous structures and orbits appear intact. IMPRESSION: Impression: No acute intracranial findings. Electronically Signed: Natanael Collier MD 10/20/2024 8:49 AM EDT Workstation ID: [id number] Aura Freeman APRN IMG CT ORDERABLES Final Res ult * (ABNORMAL) Hemoglobin A1c (10/20/2024 2:18 AM EDT) Hemoglobin A1C 5.71(H) 4.80 - 5.60 % 10/20/2024 4:19 AM EDT [facility] Blood Line / Unknown 10/20/2024 2: 18 AM EDT 10/20/2024 2:43 AM EDT Narrative [facility] - 10/20/2024 4:19 AM EDT Hemoglobin A1C Ranges: Increased Risk for Diabetes 5.7% to 6.4% Diabetes >= 6.5% Diabetic Goal < 7.0% us Aura Freeman APRN LAB BLOOD ORDERABLES Final Result [facility]
[address] [place] [address], * (ABNORMAL) Lipid Panel (10/20/2024 2:18 AM EDT) Total Cholesterol 208(H) 0 - 200 mg/dL 10/20/2024 2:56 AM EDT [facility] Triglycerides 114 0 - 150 mg/dL 10/20/2024 2:56 AM EDT [facility] HDL Cholesterol 38(L) 40 - 60 mg/dL 10/20/2024 2:56 AM EDT [facility] LDL Cholesterol 149(H) 0 - 100 mg/dL 10/20/2024 2:56 AM EDT [facility] VLDL Cholesterol 21 5 - 40 mg/dL 10/20/2024 2:56 AM EDT [facility] LDL/HDL Ratio 3.87 10/20/2024 2:56 AM EDT [facility] Blood Line / Unknown 10/20/2024 2: 18 AM EDT 10/20/2024 2:31 AM EDT Narrative [facility] - 10/20/2024 2:56 AM EDT Cholesterol Reference Ranges (U.S. Department of Health and Human Services ATP III Classifications) Desirable <200 mg/dL Borderline High 200-239 mg/dL High Risk >240 mg/dL Triglyceride Reference Ranges (U.S. Department of Health and Human Services ATP III Classifications) Normal <150 mg/dL Borderline High 150-199 mg/dL High 200-499 mg/dL Very High >500 mg/dL HDL Reference Ranges (U.S. Department of Health and Human Services ATP III Classifications) Low <40 mg/dl (major risk factor for CHD) High >60 mg/dl ('negative' risk factor for CHD) LDL Reference Ranges (U.S. Department of Health and Human Services ATP III Classifications) Optimal <100 mg/dL Near Optimal 100-129 mg/dL Borderline High 130-159 mg/dL High 160-189 mg/dL Very High >189 mg/dL LDL is calculated using the NIH LDL-C calculation. Aura Freeman APRN LAB BLOOD ORDERABLES Final Result [facility]
[address] [place] [address], * (ABNORMAL) Basic Metabolic Panel (10/20/2024 2:18 AM EDT) [facility] Glucose 169(H) 65 - 99 mg/dL 10/20/2024 2:56 AM EDT [facility] BUN 17.8 6.0 - 20.0 mg/dL 10/20/2024 2:56 AM EDT [facility] Creatinine 1.11 0.76 - 1.27 mg/dL 10/20/2024 2:56 AM EDT [facility] Sodium 136 136 - 145 mmol/L 10/20/2024 2:56 AM EDT [facility] Potassium 4.5 3.5 - 5.2 mmol/L 10/20/2024 2:56 AM EDT [facility] Comment:Slight hemolysis det ected by analyzer. Result may be falsely elevated. Chloride 106 98 - 107 mmol/L 10/20/2024 2:56 AM EDT [facility] CO2 20.0(L) 22.0 - 29.0 mmol/L 10/20/2024 2:56 AM EDT [facility] Calcium 9.2 8.6 - 10.5 mg/dL 10/20/2024 2:56 AM [facility] BUN/Creatinine Ratio 16.0 7.0 - 25.0 10/20/2024 2:56 AM EDT [facility] Anion Gap 10.0 5.0 - 15.0 mmol/L 10/20/2024 2:56 AM [facility] eGFR 76.5 >60.0 mL/min/1.7 3 10/20/2024 2:56 AM [facility] Blood Line / Unknown 10/20/2024 2: 18 AM EDT 10/20/2024 2:31 AM EDT [facility] - 10/20/2024 2:56 AM EDT GFR Categories in Chronic Kidney Disease [...] does not include race as a factor us Buddy Birmingham MD LAB BLOOD ORDERABLES F inal Result [facility]
[address] [place] [address], * MRI Brain Without Contrast (10/20/2024 1:02 AM EDT) Anatomical Region Laterality Modality Head, Neck N/A Magnetic Resonan ce 10/20/2024 4:29 AM EDT Impressions 10/20/2024 4:31 AM EDT Impression: No acute intracranial abnormality. Electronically Signed: Stanislaw Power MD 10/20/2024 4:31 AM EDT Workstation ID: [id number] Narrative 10/20/2024 4:31 AM EDT MRI BRAIN WO CONTRAST Date of Exam: 10/20/2024 12:53 AM EDT Indication: Stroke, follow up Left arm weakness/sensory loss, right leg weakness. Comparison: CT head 10/19/2024 Technique: Routine multiplanar/multisequence sequence images of the brain were obtained without contrast administration. Findings: There is no diffusion restriction to suggest acute infarct. There is no evidence of acute or chronic intracranial hemorrhage. No mass effect or midline shift. No abnormal extra-axial collections. The major vascular flow voids appear intact. The basal ganglia, brainstem and cerebellum appear within normal limits. Calvarial and superficial soft tissue signal is within normal limits. Orbits appear unremarkable. The paranasal sinuses and the mastoid air cells appear well aerated. Midline structures are intact. Procedure Note Stanislaw Power MD - 10/20/2024 MRI BRAIN WO CONTRAST Date of Exam: 10/20/2024 12:53 AM EDT Indication: Stroke, follow up Left arm weakness/sensory loss, right leg weakness. Comparison: CT head 10/19/2024 Technique: Routine multiplanar/multisequence sequence images of the brainwere obtained without contrast administration. Findings: There is no diffusion restriction to suggest acute infarct. There is noevidence of acute or chronic intracranial hemorrhage. No mass effect ormidline shift. No abnormal extra-axial collections. The major vascularflow voids appear intact. The basal ganglia, brainstem and cerebellum appear within normal limits. Calvarialand superficial soft tissue signal is within normal limits. Orbits appearunremarkable. The paranasal sinuses and the mastoid air cells appear wellaerated. Midline structures are intact. IMPRESSION: Impression: No acute intracranial abnormality. Electronically Signed: Stanislaw Power MD 10/20/2024 4:31 AM EDT Workstation ID: [id number] Aura E Pete ROLL CARRIER IMG MRI ORDERABLES Final Re sult * ECHO COMPLETE W/ DOPPLER AND COLOR FLOW (10/19/2024 11:41 AM EDT) LVIDd 4.7 cm LVIDs 2.8 cm IVSd 1.39 cm LVPWd 1.05 cm FS 39.6 % IVS/LVPW 1.32 cm ESV(cubed) 22.3 ml LV Sys Vol (BSA corrected) 39.6 cm2 EDV(cubed) 101.5 ml LV Andrade Vol (BSA corrected) 76.3 cm2 LV mass(C)d 215.3 grams LVOT area 3.4 cm2 LVOT diam 2.07 cm EDV(MOD-sp2) 132.0 ml EDV(MOD-sp4) 176.0 ml ESV(MOD-sp2) 69.8 ml ESV(MOD-sp4) 91.4 ml SV(MOD-sp2) 62.2 ml SV(MOD-sp4) 84.6 ml SVi(MOD-SP2) 27.0 ml/m2 SVi(MOD-SP4) 36.7 ml/m2 SVi (LVOT) 28.0 ml/m2 EF(MOD-sp2) 47.1 % EF(MOD-sp4) 48.1 % MV E max ezra 75.8 cm/sec MV A max ezra 90.0 cm/sec MV E/A 0.84 IVRT 130.0 ms Med Peak E' Ezra 5.0 cm/sec Lat Peak E' Ezra 8.9 cm/sec Avg E/e' ratio 10.91 SV(LVOT) 64.6 ml RV Base 5.2 cm RV Mid 3.5 cm RV Length 7.1 cm TAPSE (>1.6) 2.28 cm RV S' 10.7 cm/sec LA dimension (2D) 3.3 cm LV V1 max 76.1 cm/sec LV V1 max PG 2.32 mmHg LV V1 mean PG 1.19 mmHg LV V1 VTI 19.2 cm Ao pk ezra 115.4 cm/sec Ao max PG 5.3 mmHg Ao mean PG 2.8 mmHg Ao V2 VTI 28.0 cm NAM(I,D) 2.30 cm2 Dimensionless Index 0.68 (DI) MV max PG 3.9 mmHg MV mean PG 1.00 mmHg MV V2 VTI 31.7 cm MV P1/2t 110.2 msec MVA(P1/2t) 2.00 cm2 MVA(VTI) 2.04 cm2 MV dec slope 198.4 cm/sec2 PA acc time 0.13 sec Ao root diam 4.1 cm BH CV ECHO SHUNT ASSESSMENT PERFORMED (HIDDEN SCRIPTING) 1 Echo EF Estimated 55.0 % Anatomical Region Laterality Modality Ultrasound Narrative 10/19/2024 11:54 AM EDT Left ventricular systolic function is normal. Estimated left ventricular EF = 55% Left ventricular wall thickness is consistent with mild concentric hypertrophy. The cardiac valves are anatomically and functionally normal. Saline test results are negative. Left Ventricle Left ventricular systolic function is normal. Estimated left ventricular EF = 55% Left ventricular ejection fraction appears to be 41 - 45%. Normal left ventricular cavity size noted. Left ventricular wall thickness is consistent with mild concentric hypertrophy. All left ventricular wall segments contract normally. Right Ventricle Normal right ventricular cavity size, wall thickness, systolic function and septal motion noted. Left Atrium Normal left atrial size and volume noted. Saline test results are negative. Right Atrium Normal right atrial cavity size noted. Mitral Valve The mitral valve is structurally normal with no regurgitation or significant stenosis present. Tricuspid Valve The tricuspid valve is structurally normal with no significant regurgitation or significant stenosis present. Aortic Valve The aortic valve is structurally normal with no regurgitation or stenosis present. Pulmonic Valve The pulmonic valve is structurally normal with no regurgitation or significant stenosis present. Pericardium The pericardium is normal. There is no evidence of pericardial effusion. . Greater Vessels No dilation of the aortic root is present. Shunt Assessment Verbal consent was obtained from the patient for use of agitated saline to assess for shunting. A total of 20 mL of agitated saline was administered. us Aura Freeman APRN CV ECHO ORDERABLES Final Re sult * Telemetry Scan (10/19/2024 8:41 AM EDT) [facility] ORDERABLES Final Result * ECG 12 Lead ED Triage Standing Order; Acute Stroke (Onset <24 hrs) (10/19/2024 8:39 AM EDT) Pathologist [facility] QT Interval 400 ms ECG QTC Interval 375 ms ECG 10/19/2024 8:39 AM EDT 10/19/2024 2:21 PM EDT Narrative ECG - 10/19/2024 2:21 PM EDT Test Reason : ED Triage Standing Order~ Blood Pressure : */* mmHG Vent. Rate : 53 BPM Atrial Rate : 53 BPM P-R Int : 176 ms QRS Dur : 92 ms QT Int : 400 ms P-R-T Axes : 2 -34 5 degrees QTcB Int : 375 ms Sinus bradycardia Left axis deviation Septal infarct , age undetermined Inferior infarct (cited on or before 23-Dec-2017) Abnormal ECG Confirmed by MD Alatorre Michael ([id number]) on 10/19/2024 2:21:34 PM Referred By: ED Confirmed By: Abebe Alatorre MD Procedure Note Wang Alatorre MD - 10/19/2024 Test Reason : ED Triage Standing Order~ Blood Pressure : */* mmHG Vent. Rate : 53 BPM Atrial Rate : 53 BPM P-R Int : 176 ms QRS Dur : 92 ms QT Int : 400 ms P-R-T Axes : 2 -34 5 degrees QTcB Int : 375 ms Sinus bradycardia Left axis deviation Septal infarct , age undetermined Inferior infarct (cited on or before 23-Dec-2017) Abnormal ECG Confirmed by MD Alatorre Michael ([id number]) on 10/19/2024 2:21:34 PM Referred By: ED Confirmed By: Abebe Alatorre MD Wang Alatorre MD ECG ORDERABLES Final Resu lt BH ECG * Urinalysis With Culture If Indicated - Urine, Clean Catch (10/19/2024 8:28 AM EDT) Color, UA Yellow Yellow, Straw 10/19/2024 8:42 AM EDT [facility] Appearance, UA Clear Clear 10/19/2024 8:42 AM EDT [facility] pH, UA 5.5 5.0 - 8.0 10/19/2024 8:42 AM EDT [facility] Specific [place], UA 1.023 1.005 - 1.030 10/19/2024 8:42 AM EDT [facility] Glucose, UA Negative Negative 10/19/2024 8:42 AM EDT [facility] Ketones, UA Negative Negative 10/19/2024 8:42 AM EDT [facility] Bilirubin, UA Negative Negative 10/19/2024 8:42 AM EDT [facility] Blood, UA Negative Negative 10/19/2024 8:42 AM EDT [facility] Protein, UA Negative Negative 10/19/2024 8:42 AM EDT [facility] Leuk Esterase, UA Negative Negative 10/19/2024 8:42 AM EDT [facility] Nitrite, UA Negative Negative 10/19/2024 8:42 AM EDT [facility] Urobilinogen, UA 0.2 E.U./dL 0.2 - 1.0 E.U./dL 10/19/2024 8:42 AM EDT [facility] Urine Urine specimen obtained by clean catch procedure / Unknown Collection / Unknown 10/19/2024 8:28 AM EDT 10/19/2024 8:37 AM EDT [facility] - 10/19/2024 8:42 AM EDT In absence of clinical symptoms, the presence of pyuria, bacteria, and/or nitrites on the urinalysis result does not correlate with infection. Urine microscopic not indicated. us Wang Alatorre MD URINE ORDERABLES Final Res ult [facility]
[address] [place] [address], * CT CEREBRAL PERFUSION WITH & WITHOUT CONTRAST (10/19/2024 8:13 AM EDT) Anatomical Region Laterality Modality Head N/A Computed Tomogra phy 10/19/2024 8:25 AM EDT Impressions 10/19/2024 8:30 AM EDT Impression: No CT perfusion evidence of infarct or ischemia. Electronically Signed: Wang Rai MD 10/19/2024 8:30 AM EDT Workstation ID: [id number] Narrative 10/19/2024 8:[address] CEREBRAL PERFUSION W WO CONTRAST Date of Exam: 10/19/2024 7:43 AM EDT Indication: Neuro Deficit, acute, Stroke suspected Neuro deficit, acute stroke suspected. Comparison: CT head from earlier today Technique: Axial CT images of the brain were obtained prior to and after the administration of 50 mL Isovue-370. Core blood volume, core blood flow, mean transit time, and Tmax images were obtained utilizing the Rapid software protocol. A limited CT angiogram of the head was also performed to measure the blood vessel density. The radiation dose reduction device was turned on for each scan per the ALARA (As Low as Reasonably Achievable) protocol. Findings: The intracranial cerebral perfusion appears normal. Procedure Note Wang Rai MD - 10/19/2024 CT CEREBRAL PERFUSION W WO CONTRAST Date of Exam: 10/19/2024 7:43 AM EDT Indication: Neuro Deficit, acute, Stroke suspected Neuro deficit, acute stroke suspected. Comparison: CT head from earlier today Technique: Axial CT images of the brain were obtained prior to and afterthe administration of 50 mL Isovue-370. Core blood volume, core bloodflow, mean transit time, and Tmax images were obtained utilizing the Rapidsoftware protocol. A limited CT angiogram of the head was also performed to measure the blood vesseldensity. The radiation dose reduction device was turned on for each scan per theALARA (As Low as Reasonably Achievable) protocol. Findings: The intracranial cerebral perfusion appears normal. IMPRESSION: Impression: No CT perfusion evidence of infarct or ischemia. Electronically Signed: Wang Rai MD 10/19/2024 8:30 AM EDT Workstation ID: [id number] Wang Alatorre MD IMG CT ORDERABLES Final Re sult * CT Angiogram Head w AI Analysis of LVO (10/19/2024 8:13 AM EDT) Anatomical Region Laterality Modality Head, Vascular N/A Computed Tomogra phy 10/19/2024 8:30 AM EDT Impressions 10/19/2024 8:43 AM EDT Impression: Major arterial vasculature within head and neck appears widely patent, with no hemodynamically significant stenosis, dissection, thrombus, or aneurysm. Electronically Signed: Wang Rai MD 10/19/2024 8:43 AM EDT Workstation ID: [id number] Narrative 10/19/2024 8:[address] ANGIOGRAM NECK, CT ANGIOGRAM HEAD W AI ANALYSIS OF LVO Date of Exam: 10/19/2024 7:43 AM EDT Indication: Neuro Deficit, acute, Stroke suspected Neuro deficit, acute stroke suspected. Right lower leg numbness Comparison: CT head from earlier today Technique: CTA of the head and neck was performed before and after the uneventful intravenous administration of 75 mL Isovue-370. Reconstructed coronal and sagittal images were also obtained. In addition, a 3-D volume rendered image was created for interpretation. Automated exposure control and iterative reconstruction methods were used. Findings: There is a two-vessel aortic arch with common origin of the innominate and left common carotid arteries, normal variant. The right common carotid artery is widely patent. There is mild plaque at the right carotid bifurcation that is not hemodynamically significant. The right internal carotid artery is widely patent. The left common carotid artery is widely patent. There is mild plaque at the left carotid bifurcation that is not hemodynamically significant. The left internal carotid artery is widely patent. The right vertebral artery is widely patent. The left vertebral artery is widely patent. The left vertebral artery is dominant. The bilateral middle cerebral, bilateral anterior cerebral, and anterior communicating arteries are widely patent. The basilar and bilateral posterior cerebral arteries are widely patent. There is a patent right posterior communicating artery. No definite left posterior communicating artery is identified. No intracranial aneurysm is identified. The visualized portions of the bilateral superior cerebellar, anterior-inferior cerebellar, and posterior inferior cerebellar arteries are unremarkable. Procedure Note Wang Rai MD - 10/19/2024 CT ANGIOGRAM NECK, CT ANGIOGRAM HEAD W AI ANALYSIS OF LVO Date of Exam: 10/19/2024 7:43 AM EDT Indication: Neuro Deficit, acute, Stroke suspected Neuro deficit, acute stroke suspected. Right lower leg numbness Comparison: CT head from earlier today Technique: CTA of the head and neck was performed before and after theuneventful intravenous administration of 75 mL Isovue-370. Reconstructedcoronal and sagittal images were also obtained. In addition, a 3-D volumerendered image was created for interpretation. Automated exposure control and iterative reconstructionmethods were used. Findings: There is a two-vessel aortic arch with common origin of the innominate andleft common carotid arteries, normal variant. The right common carotidartery is widely patent. There is mild plaque at the right carotidbifurcation that is not hemodynamically significant. The right internal carotid artery is widely patent. The leftcommon carotid artery is widely patent. There is mild plaque at the leftcarotid bifurcation that is not hemodynamically significant. The leftinternal carotid artery is widely patent. The right vertebral artery is widely patent. The left vertebralartery is widely patent. The left vertebral artery is dominant. The bilateral middle cerebral, bilateral anterior cerebral, and anteriorcommunicating arteries are widely patent. The basilar and bilateralposterior cerebral arteries are widely patent. There is a patent rightposterior communicating artery. No definite left posterior communicating artery is identified. Nointracranial aneurysm is identified. The visualized portions of thebilateral superior cerebellar, anterior-inferior cerebellar, and posteriorinferior cerebellar arteries are unremarkable. IMPRESSION: Impression: Major arterial vasculature within head and neck appears widely patent,with no hemodynamically significant stenosis, dissection, thrombus, oraneurysm. Electronically Signed: Wang Rai MD 10/19/2024 8:43 AM EDT Workstation ID: [id number] Wang Alatorre MD IMG CT ORDERABLES Final Re sult * CT Abdomen Pelvis With Contrast (10/19/2024 8:13 AM EDT) Anatomical Region Laterality Modality Abdomen, Pelvis N/A Computed Tomogra phy 10/19/2024 8:26 AM EDT Impressions 10/19/2024 8:44 AM EDT Impression: No acute findings in the chest, abdomen, or pelvis. No evidence of aortic dissection, within the confines of suboptimal contrast bolus timing. Chronic/ancillary findings as above. Electronically Signed: Marco Antonio Bill MD 10/19/2024 8:44 AM EDT Workstation ID: [id number] Narrative 10/19/2024 8:[address] ANGIOGRAM CHEST, CT ABDOMEN PELVIS W CONTRAST Date of Exam: 10/19/2024 7:43 AM EDT Indication: Suspect Dissection. Comparison: CT abdomen pelvis 01/19/2023. Technique: CTA of the chest and CT abdomen pelvis was performed before and after the uneventful intravenous administration of 150 mL Isovue-370. Reconstructed coronal and sagittal images were also obtained. In addition, a 3-D volume rendered image was created for interpretation. Automated exposure control and iterative reconstruction methods were used. Findings: Note that while this examination is coded as a CTA of the chest, contrast timing is suboptimal for arterial assessment. Interpretation performed within these confines. CHEST No pulmonary arterial filling defect to suggest central pulmonary embolism. Normal caliber mildly atherosclerotic thoracic aorta. Within the confines suboptimal contrast bolus timing, there is no evidence of aortic dissection. Coronary artery calcifications. No pericardial effusion. No mediastinal mass. Calcified mediastinal/hilar lymph nodes consistent with healed granulomatous disease. No pathologically enlarged lymph nodes. Incidental small sebaceous cyst in the right upper back. No acute or suspicious osseous abnormality. Central airways are patent. No suspicious pulmonary nodule. No focal airspace consolidation. No pleural effusion. No pneumothorax. ABDOMEN/PELVIS No evidence of focal liver lesion. Benign calcified hepatic granulomata. Gallbladder is unremarkable. No biliary ductal dilatation. No findings of acute pancreatitis. Spleen is normal in size. No adrenal nodule. Kidneys are symmetric in size and enhancement without hydronephrosis. Normal contrast excretion. Urinary bladder and pelvic reproductive organs are unremarkable. Sigmoid anastomosis. Mild colonic diverticulosis without evidence of acute diverticulitis. Normal appendix. Small hiatal hernia. No bowel obstruction. No pathologically enlarged lymph nodes. Normal caliber mildly atherosclerotic abdominal aorta. Within the confines suboptimal contrast bolus timing, there is no evidence of aortic dissection. Prior midline incision. No acute or suspicious osseous abnormality. Procedure Note Marco Antonio Bill MD - 10/19/2024 CT ANGIOGRAM CHEST, CT ABDOMEN PELVIS W CONTRAST Date of Exam: 10/19/2024 7:43 AM EDT Indication: Suspect Dissection. Comparison: CT abdomen pelvis 01/19/2023. Technique: CTA of the chest and CT abdomen pelvis was performed before andafter the uneventful intravenous administration of 150 mL Isovue-370.Reconstructed coronal and sagittal images were also obtained. In addition,a 3-D volume rendered image was created for interpretation. Automated exposure control and iterativereconstruction methods were used. Findings: Note that while this examination is coded as a CTA of the chest, contrasttiming is suboptimal for arterial assessment. Interpretation performedwithin these confines. CHEST No pulmonary arterial filling defect to suggest central pulmonaryembolism. Normal caliber mildly atherosclerotic thoracic aorta. Within theconfines suboptimal contrast bolus timing, there is no evidence of aorticdissection. Coronary artery calcifications. No pericardial effusion. No mediastinal mass. Calcifiedmediastinal/hilar lymph nodes consistent with healed granulomatousdisease. No pathologically enlarged lymph nodes. Incidental smallsebaceous cyst in the right upper back. No acute or suspicious osseous abnormality. Central airways are patent. No suspicious pulmonary nodule. No focalairspace consolidation. No pleural effusion. No pneumothorax. ABDOMEN/PELVIS No evidence of focal liver lesion. Benign calcified hepatic granulomata.Gallbladder is unremarkable. No biliary ductal dilatation. No findings ofacute pancreatitis. Spleen is normal in size. No adrenal nodule. Kidneysare symmetric in size and enhancement without hydronephrosis. Normal contrast excretion. Urinarybladder and pelvic reproductive organs are unremarkable. Sigmoidanastomosis. Mild colonic diverticulosis without evidence of acutediverticulitis. Normal appendix. Small hiatal hernia. No bowel obstruction. No pathologically enlarged lymph nodes. Normal caliber mildlyatherosclerotic abdominal aorta. Within the confines suboptimal contrastbolus timing, there is no evidence of aortic dissection. Prior midlineincision. No acute or suspicious osseous abnormality. IMPRESSION: Impression: No acute findings in the chest, abdomen, or pelvis. No evidence of aortic dissection, within the confines of suboptimalcontrast bolus timing. Chronic/ancillary findings as above. Electronically Signed: Marco Antonio Bill MD 10/19/2024 8:44 AM EDT Workstation ID: [id number] Wang Alatorre MD IMG CT ORDERABLES Final Re sult * CT Angiogram Chest (10/19/2024 8:13 AM EDT) Anatomical Region Laterality Modality Chest, Vascular N/A Computed Tomogra phy 10/19/2024 8:26 AM EDT Impressions 10/19/2024 8:44 AM EDT Impression: No acute findings in the chest, abdomen, or pelvis. No evidence of aortic dissection, within the confines of suboptimal contrast bolus timing. Chronic/ancillary findings as above. Electronically Signed: Marco Antonio Bill MD 10/19/2024 8:44 AM EDT Workstation ID: [id number] Narrative 10/19/2024 8:[address] ANGIOGRAM CHEST, CT ABDOMEN PELVIS W CONTRAST Date of Exam: 10/19/2024 7:43 AM EDT Indication: Suspect Dissection. Comparison: CT abdomen pelvis 01/19/2023. Technique: CTA of the chest and CT abdomen pelvis was performed before and after the uneventful intravenous administration of 150 mL Isovue-370. Reconstructed coronal and sagittal images were also obtained. In addition, a 3-D volume rendered image was created for interpretation. Automated exposure control and iterative reconstruction methods were used. Findings: Note that while this examination is coded as a CTA of the chest, contrast timing is suboptimal for arterial assessment. Interpretation performed within these confines. CHEST No pulmonary arterial filling defect to suggest central pulmonary embolism. Normal caliber mildly atherosclerotic thoracic aorta. Within the confines suboptimal contrast bolus timing, there is no evidence of aortic dissection. Coronary artery calcifications. No pericardial effusion. No mediastinal mass. Calcified mediastinal/hilar lymph nodes consistent with healed granulomatous disease. No pathologically enlarged lymph nodes. Incidental small sebaceous cyst in the right upper back. No acute or suspicious osseous abnormality. Central airways are patent. No suspicious pulmonary nodule. No focal airspace consolidation. No pleural effusion. No pneumothorax. ABDOMEN/PELVIS No evidence of focal liver lesion. Benign calcified hepatic granulomata. Gallbladder is unremarkable. No biliary ductal dilatation. No findings of acute pancreatitis. Spleen is normal in size. No adrenal nodule. Kidneys are symmetric in size and enhancement without hydronephrosis. Normal contrast excretion. Urinary bladder and pelvic reproductive organs are unremarkable. Sigmoid anastomosis. Mild colonic diverticulosis without evidence of acute diverticulitis. Normal appendix. Small hiatal hernia. No bowel obstruction. No pathologically enlarged lymph nodes. Normal caliber mildly atherosclerotic abdominal aorta. Within the confines suboptimal contrast bolus timing, there is no evidence of aortic dissection. Prior midline incision. No acute or suspicious osseous abnormality. Procedure Note Marco Antonio Bill MD - 10/19/2024 CT ANGIOGRAM CHEST, CT ABDOMEN PELVIS W CONTRAST Date of Exam: 10/19/2024 7:43 AM EDT Indication: Suspect Dissection. Comparison: CT abdomen pelvis 01/19/2023. Technique: CTA of the chest and CT abdomen pelvis was performed before andafter the uneventful intravenous administration of 150 mL Isovue-370.Reconstructed coronal and sagittal images were also obtained. In addition,a 3-D volume rendered image was created for interpretation. Automated exposure control and iterativereconstruction methods were used. Findings: Note that while this examination is coded as a CTA of the chest, contrasttiming is suboptimal for arterial assessment. Interpretation performedwithin these confines. CHEST No pulmonary arterial filling defect to suggest central pulmonaryembolism. Normal caliber mildly atherosclerotic thoracic aorta. Within theconfines suboptimal contrast bolus timing, there is no evidence of aorticdissection. Coronary artery calcifications. No pericardial effusion. No mediastinal mass. Calcifiedmediastinal/hilar lymph nodes consistent with healed granulomatousdisease. No pathologically enlarged lymph nodes. Incidental smallsebaceous cyst in the right upper back. No acute or suspicious osseous abnormality. Central airways are patent. No suspicious pulmonary nodule. No focalairspace consolidation. No pleural effusion. No pneumothorax. ABDOMEN/PELVIS No evidence of focal liver lesion. Benign calcified hepatic granulomata.Gallbladder is unremarkable. No biliary ductal dilatation. No findings ofacute pancreatitis. Spleen is normal in size. No adrenal nodule. Kidneysare symmetric in size and enhancement without hydronephrosis. Normal contrast excretion. Urinarybladder and pelvic reproductive organs are unremarkable. Sigmoidanastomosis. Mild colonic diverticulosis without evidence of acutediverticulitis. Normal appendix. Small hiatal hernia. No bowel obstruction. No pathologically enlarged lymph nodes. Normal caliber mildlyatherosclerotic abdominal aorta. Within the confines suboptimal contrastbolus timing, there is no evidence of aortic dissection. Prior midlineincision. No acute or suspicious osseous abnormality. IMPRESSION: Impression: No acute findings in the chest, abdomen, or pelvis. No evidence of aortic dissection, within the confines of suboptimalcontrast bolus timing. Chronic/ancillary findings as above. Electronically Signed: Marco Antonio Bill MD 10/19/2024 8:44 AM EDT Workstation ID: [id number] Wang Alatorre MD IMG CT ORDERABLES Final Re sult * CT Angiogram Neck (10/19/2024 8:13 AM EDT) Anatomical Region Laterality Modality Neck, Vascular N/A Computed Tomogra phy 10/19/2024 8:30 AM EDT Impressions 10/19/2024 8:43 AM EDT Impression: Major arterial vasculature within head and neck appears widely patent, with no hemodynamically significant stenosis, dissection, thrombus, or aneurysm. Electronically Signed: Wang Rai MD 10/19/2024 8:43 AM EDT Workstation ID: [id number] Narrative 10/19/2024 8:[address] ANGIOGRAM NECK, CT ANGIOGRAM HEAD W AI ANALYSIS OF LVO Date of Exam: 10/19/2024 7:43 AM EDT Indication: Neuro Deficit, acute, Stroke suspected Neuro deficit, acute stroke suspected. Right lower leg numbness Comparison: CT head from earlier today Technique: CTA of the head and neck was performed before and after the uneventful intravenous administration of 75 mL Isovue-370. Reconstructed coronal and sagittal images were also obtained. In addition, a 3-D volume rendered image was created for interpretation. Automated exposure control and iterative reconstruction methods were used. Findings: There is a two-vessel aortic arch with common origin of the innominate and left common carotid arteries, normal variant. The right common carotid artery is widely patent. There is mild plaque at the right carotid bifurcation that is not hemodynamically significant. The right internal carotid artery is widely patent. The left common carotid artery is widely patent. There is mild plaque at the left carotid bifurcation that is not hemodynamically significant. The left internal carotid artery is widely patent. The right vertebral artery is widely patent. The left vertebral artery is widely patent. The left vertebral artery is dominant. The bilateral middle cerebral, bilateral anterior cerebral, and anterior communicating arteries are widely patent. The basilar and bilateral posterior cerebral arteries are widely patent. There is a patent right posterior communicating artery. No definite left posterior communicating artery is identified. No intracranial aneurysm is identified. The visualized portions of the bilateral superior cerebellar, anterior-inferior cerebellar, and posterior inferior cerebellar arteries are unremarkable. Procedure Note Wang Rai MD - 10/19/2024 CT ANGIOGRAM NECK, CT ANGIOGRAM HEAD W AI ANALYSIS OF LVO Date of Exam: 10/19/2024 7:43 AM EDT Indication: Neuro Deficit, acute, Stroke suspected Neuro deficit, acute stroke suspected. Right lower leg numbness Comparison: CT head from earlier today Technique: CTA of the head and neck was performed before and after theuneventful intravenous administration of 75 mL Isovue-370. Reconstructedcoronal and sagittal images were also obtained. In addition, a 3-D volumerendered image was created for interpretation. Automated exposure control and iterative reconstructionmethods were used. Findings: There is a two-vessel aortic arch with common origin of the innominate andleft common carotid arteries, normal variant. The right common carotidartery is widely patent. There is mild plaque at the right carotidbifurcation that is not hemodynamically significant. The right internal carotid artery is widely patent. The leftcommon carotid artery is widely patent. There is mild plaque at the leftcarotid bifurcation that is not hemodynamically significant. The leftinternal carotid artery is widely patent. The right vertebral artery is widely patent. The left vertebralartery is widely patent. The left vertebral artery is dominant. The bilateral middle cerebral, bilateral anterior cerebral, and anteriorcommunicating arteries are widely patent. The basilar and bilateralposterior cerebral arteries are widely patent. There is a patent rightposterior communicating artery. No definite left posterior communicating artery is identified. Nointracranial aneurysm is identified. The visualized portions of thebilateral superior cerebellar, anterior-inferior cerebellar, and posteriorinferior cerebellar arteries are unremarkable. IMPRESSION: Impression: Major arterial vasculature within head and neck appears widely patent,with no hemodynamically significant stenosis, dissection, thrombus, oraneurysm. Electronically Signed: Wang Rai MD 10/19/2024 8:43 AM EDT Workstation ID: [id number] Wang Alatorre MD IMG CT ORDERABLES Final Re sult * Khan Top (10/19/2024 7:48 AM EDT) Extra Tube Hold for add-ons. 10/19/2024 8:01 AM EDT [facility] Comment:Auto resulted. Blood Venipuncture / Unknown 10/19/2024 7:48 AM EDT 10/19/2024 7:54 AM EDT Wang Alatorre MD LAB BLOOD ORDER ONLY Final Result Performing Organization Address City/[facility]/ZIP Co de Phone Number [facility]
[address] [place] [address], * TSH Rfx On Abnormal To Free T4 (10/19/2024 7:48 AM EDT) TSH 1.750 0.270 - 4.200 uIU/mL 10/19/2024 8:23 AM EDT [facility] Blood Venipuncture / Unknown 10/19/2024 7:48 AM EDT 10/19/2024 7:54 AM EDT Wang Alatorre MD LAB BLOOD ORDERABLES Final Result Performing Organization Address City/[facility]/ZIP Co de Phone Number [facility]
[address] [place] [address], * Gold Top - SST (10/19/2024 7:48 AM EDT) Extra Tube Hold for add-ons. 10/19/2024 8:01 AM EDT [facility] Comment:Auto resulted. Blood Venipuncture / Unknown 10/19/2024 7:48 AM EDT 10/19/2024 7:54 AM EDT Wang Alatorre MD LAB BLOOD ORDER ONLY Final Result Performing Organization Address City/[facility]/ZIP Co de Phone Number [facility]
[address] [place] [address], [place] [phone] * Green Top (Gel) (10/19/2024 7:48 AM EDT) Extra Tube Hold for add-ons. 10/19/2024 8:01 AM EDT [facility] Comment:Auto resulted. Blood Venipuncture / Unknown 10/19/2024 7:48 AM EDT 10/19/2024 7:54 AM EDT Wang Alatorre MD LAB BLOOD ORDER ONLY Final Result Performing Organization Address [facility] Co de Phone Number [facility]
[address] [place] [address], [place] [phone] * Lavender Top (10/19/2024 7:48 AM EDT) Extra Tube hold for add-on 10/19/2024 8:01 AM EDT [facility] Comment:Auto resulted Blood Venipuncture / Unknown 10/19/2024 7:48 AM EDT 10/19/2024 7:54 AM EDT Wang Alatorre MD LAB BLOOD ORDER ONLY Final Result Performing Organization Address City/[facility]/ZIP Co de Phone Number [facility]
[address] [place] [address], [place] [phone] * Light Blue Top (10/19/2024 7:48 AM EDT) Extra Tube Hold for add-ons. 10/19/2024 8:01 AM EDT [facility] Comment:Auto resulted Blood Venipuncture / Unknown 10/19/2024 7:48 AM EDT 10/19/2024 7:54 AM EDT Wang Alatorre MD LAB BLOOD ORDER ONLY Final Result Performing Organization Address [facility] Co de Phone Number [facility]
[address] [place] [address], * aPTT (10/19/2024 7:48 AM EDT) PTT 26.0 22.0 - 39.0 seconds 10/19/2024 8:09 AM EDT [facility] Blood Venipuncture / Unknown 10/19/2024 7:48 AM EDT 10/19/2024 7:54 AM EDT Narrative [facility] - 10/19/2024 8:09 AM EDT PTT = The equivalent PTT values for the therapeutic range of heparin levels at 0.3 to 0.5 U/ml are 60 to 70 seconds. Wang Alatorre MD LAB BLOOD ORDERABLES Final Result Performing Organization Address [facility] de Phone Number [facility]
[address] [place] [address], * Protime-INR (10/19/2024 7:48 AM EDT) Protime 13.8 12.2 - 15.3 Seconds 10/19/2024 8:09 AM EDT [facility] INR 1.00 0.89 - 1.12 10/19/2024 8:09 AM EDT [facility] Blood Venipuncture / Unknown 10/19/2024 7:48 AM EDT 10/19/2024 7:54 AM EDT Wang Alatorre MD LAB BLOOD ORDERABLES Final Result Performing Organization Address City/[facility] Co de Phone Number [facility]
[address] [place] [address], * Magnesium (10/19/2024 7:48 AM EDT) Pathologist [facility] Magnesium 2.0 1.6 - 2.6 mg/dL 10/19/2024 8:23 AM EDT [facility] Blood Venipuncture / Unknown 10/19/2024 7:48 AM EDT 10/19/2024 7:54 AM EDT Wang Alatorre MD LAB BLOOD ORDERABLES Final Result [facility]
[address] [place] [address], * (ABNORMAL) POC CHEM 8 (10/19/2024 7:45 AM EDT) [facility] Glucose 101 70 - 130 mg/dL 10/19/2024 7:52 AM EDT [facility] BUN 18 8 - 26 mg/dL 10/19/2024 7:52 AM EDT [facility] Creatinine 1.20 0.60 - 1.30 mg/dL 10/19/2024 7:52 AM EDT [facility] Sodium 139 138 - 146 mmol/L 10/19/2024 7:52 AM EDT [facility] POC Potassium 4.2 3.5 - 4.9 mmol/L 10/19/2024 7:52 AM EDT [facility] Chloride 105 98 - 109 mmol/L 10/19/2024 7:52 AM EDT [facility] Total CO2 22(L) 24 - 29 mmol/L 10/19/2024 7:52 AM EDT [facility] Hemoglobin 16.7 12.0 - 17.0 g/dL 10/19/2024 7:52 AM EDT [facility] Comment:Serial Number: [id number] 7Operator: [id number] Hematocrit 49 38 - 51 % 10/19/2024 7:52 AM EDT [facility] Ionized Calcium 1.43(H) 1.20 - 1.32 mmol/L 10/19/2024 7:52 AM EDT [facility] eGFR 69.7 >60.0 mL/min/1.7 3 10/19/2024 7:52 AM EDT [facility] Blood 10/19/2024 7:45 AM EDT 10/19/2024 7:52 AM EDT Wang Alatorre MD POINT OF CARE TEST ORDERAB LES Final Result [facility]
[address] [place] [address], * [place] CRITICAL CARE ILL/INJURED PATIENT INIT 30-74 MIN (10/19/2024 7:43 AM EDT) Narrative Wang Alatorre MD - 10/19/2024 7:43 AM EDT Wang Alatorre MD 10/19/2024 2:22 PM Critical Care Performed by: Wang Alatorre MD Authorized by: Wang Alatorre MD Critical care provider statement: Critical care time (minutes): 37 Critical care was necessary to treat or prevent imminent or life-threatening deterioration of the following conditions: [employer] OPERATOR failure or compromise Critical care was time spent personally by me on the following activities: Development of treatment plan with patient or surrogate, discussions with consultants, evaluation of patient's response to treatment, examination of patient, obtaining history from patient or surrogate, ordering and performing treatments and interventions, ordering and review of laboratory studies, ordering and review of radiographic studies, pulse oximetry, re-evaluation of patient's condition and review of old charts Wang Alatorre MD PROCEDURE/MINOR SURGICAL O RDERABLES Final Result * CT Head Without Contrast Stroke Protocol (10/19/2024 7:42 AM EDT) Anatomical Region Laterality Modality Head N/A Computed Tomogra phy 10/19/2024 7:51 AM EDT Impressions 10/19/2024 7:58 AM EDT Impression: Mildly limited evaluation of the posterior fossa due to skull base streak artifact. Allowing for this, no evidence of acute intracranial disease. Electronically Signed: Vaibhav Moctezuma MD 10/19/2024 7:58 AM EDT Workstation ID: [id number] Narrative 10/19/2024 7:[address] HEAD WO CONTRAST STROKE PROTOCOL Date of Exam: 10/19/2024 7:36 AM EDT Indication: Neuro deficit, acute, stroke suspected Neuro Deficit, acute, Stroke suspected. Comparison: None available. Technique: Axial CT images were obtained of the head without contrast administration. Reconstructed coronal images were also obtained. Automated exposure control and iterative construction methods were used. Scan Time: 7:35 a.m. Results discussed with Alysa Freeman APRN at 7:42 a.m., 10/19/2024. Findings: History indicates headache and weakness, fall, but the patient indicates he did not hit his head. The calvarium appears intact. Included paranasal sinuses and mastoids appear clear. There is a mild degree of generalized cerebral atrophy expected for the patient's age. Normal variant dilated perivascular space is seen in the medial left temporal lobe. Skull base streak artifact is superimposed over the lower gordy and medulla, somewhat limiting evaluation of this area. Allowing for this, there is no evidence of acute or old infarct, no evidence of intracranial hemorrhage, mass or mass effect, hydrocephalus, or abnormal extra-axial collection. Procedure Note Vaibhav Moctezuma MD - 10/19/2024 CT HEAD WO CONTRAST STROKE PROTOCOL Date of Exam: 10/19/2024 7:36 AM EDT Indication: Neuro deficit, acute, stroke suspected Neuro Deficit, acute, Stroke suspected. Comparison: None available. Technique: Axial CT images were obtained of the head without contrastadministration. Reconstructed coronal images were also obtained.Automated exposure control and iterative construction methods were used. Scan Time: 7:35 a.m. Results discussed with Alysa Freeman APRN at 7:42 a.m., 10/19/2024. Findings: History indicates headache and weakness, fall, but the patient indicateshe did not hit his head. The calvarium appears intact. Included paranasalsinuses and mastoids appear clear. There is a mild degree of generalizedcerebral atrophy expected for the patient's age. Normal variant dilated perivascular space is seen in themedial left temporal lobe. Skull base streak artifact is superimposed overthe lower gordy and medulla, somewhat limiting evaluation of this area.Allowing for this, there is no evidence of acute or old infarct, no evidence of intracranial hemorrhage,mass or mass effect, hydrocephalus, or abnormal extra-axial collection. IMPRESSION: Impression: Mildly limited evaluation of the posterior fossa due to skull base streakartifact. Allowing for this, no evidence of acute intracranial disease. Electronically Signed: Vaibhav Moctezuma MD 10/19/2024 7:58 AM EDT Workstation ID: [id number] Wang Alatorre MD IMG CT ORDERABLES Final Re sult * SCANNED - COLONOSCOPY (02/11/2023) [facility] CHART REVIEW TABS Final Re sult from Last 3 Months or Most Recently Relevant to Health Maintenance Insurance Advance Directives * CPR (Attempt to Resuscitate) (Latest Code Status on File) Date Activated Date Inactivated Comments 10/19/2024 10:34 AM 10/20/2024 5:22 PM Question Answer Comments Code Status (Patient has no pulse and is not breathing): CPR (Attempt to Resuscitate) Medical Interventions (Patie nt has pulse or is breathing): Full Support * CPR (Attempt to Resuscitate) Date Activated Date Inactivated Comments 12/29/2017 11:30 AM 12/31/2017 4:59 PM Question Answer Comments Code Status (Patient has no pulse and is not breathing): CPR (Attempt to Resuscitate) Medical Interventions (Patie nt has pulse or is breathing): Full Level Of Support Discussed With: Patient Care Teams Teacher Aide Clerical Relationship Specialty Start Date End Date Provider, No Known [place] [address] PCP - General 01/19/23
--- OUTSIDE RECORDS SUMMARY | 2024-12-20 07:38 | XMS_ITS | Encounter Summary ---
Author Organization [facility] Address [address] [place] [address] Care Team Providers Care Poultry Husbandry Worker Name Role Phone Provider, No Known Primary Care Provider Unavail able Encounter Details Date Type Department Care Team (Latest Contact Info) Description 10/30/2024 Travel Social History Tobacco Use Types Packs/Day Years [...] on file documented as of this encounter Functional Status * Calculated C-SSRS Risk Score (Lifetime/Recent) Answer Date of Assessment Author No Risk Indicated 10/30/2024 6:29 PM EDT Etta Tran RN * [place] Suicide Severity Rating Scale (Screener/Recent Self-Report) Question Answer Date of Assessment Author 1. Wish to be (Past 1 Month) No 025 6:29 PM EDT Fernie Tran RN 2. Non-Specific Active Suici jolene Thoughts (Past 1 Month) No 10/30/2024 6:29 PM EDT Fernie Tran RN 6. Suicidal Behavior (Lifetime) No 6:29 PM EDT Fernie Tran RN documented as of this encounter Plan of Treatment Upcoming Encounters Date Type Department Care Team (Late st Contact Info) Description 01/17/2025 10:00 AM EST Office Visit [facility] [address] [place] [address] [address] [place] [address] Crystal Pederson APRN [address] [facility] [address] [address] documented as of this encounter Visit Diagnoses Not on filedocumented in this encounter Care Teams Poultry Husbandry Worker Relationship Specialty Start Date End Date Provider, [place] [address] PCP - General 01/19/23 documented as of this encounter
--- NOTE | 2024-12-20 07:47 | CA_ITS ---
FINAL REPORT TECHNIQUE: Khan scale, color and spectral doppler images of the bilateral carotid arteries were obtained. CLINICAL HISTORY: SYNCOPE,SMOKER COMPARISON: None FINDINGS: Peak systolic velocity in the right internal carotid artery is 99 cm/sec. The internal carotid to common carotid artery ratio is 1.4. There is no significant carotid artery stenosis and no significant plaque formation. The right vertebral artery is normal in direction. Peak systolic velocity in the left internal carotid artery is 101 cm/sec. The internal carotid to common carotid artery ratio is 1.3. There is no significant carotid artery stenosis and no significant plaque formation. The left vertebral artery is normal in direction. IMPRESSION: Mild plaque present in the right carotid artery, with less than 50% stenosis seen in the vessel. There is mild plaque present in the left carotid artery, with less than 50% stenosis present. Antegrade flow in the bilateral vertebral arteries. Reviewed, Interpreted and Dictated by Corina Edmondson MD Transcribed by Bobbi Valencia Authenticated and [facility]
== END 2024-12-20 23:59 | disposition home or self-care (01) ==
LOC: RT 07:35
DX: I65.23 Occlusion and stenosis of bilateral carotid arteries (principal); R55 Syncope and collapse
CPT/HCPCS: 93880

== ENCOUNTER 2025-03-14 06:30 | Outpatient (CLI) | payer BC, SELFPAY ==
--- OUTSIDE RECORDS SUMMARY | 2025-01-17 10:00 | XMS_ITS | Encounter Summary ---
Author Organization [facility] Address [address] [place] [address] Care Team Providers Care Tapper Helper Name Role Phone John, Lynette MARGARET Primary Care Provider [phone] Reason for Visit * Reason Comments Hospital Follow Up Visit Encounter Details Date Type Department Care Team (Late st Contact Info) Description 01/17/2025 10:00 AM EST Office Visit [facility] NE[facility] [address] [place] [address] Crystal Pederson APRN [address] [place] [address] History of TIA (transient ischemic attack) (Primary Dx); Primary hypertension; Mixed hyperlipidemia; Tobacco abuse; Syncope and collapse Social History Tobacco Use Types Packs/Day Years Used Date Smoking Tobacco: Every Day Cigarettes 1 48 Smokeless Tobacco: Current Snuff Tobacco Cessation:Ready to Q uit: Not Asked; Counseling Given: Not Answered Comments:one pack every 3-4 days. smoked for 40 years Alcohol Use Standard Drinks/Week Comments Not Currently 0 (1 standard drink = 0.6 oz pure alcohol) 1 beer every 3-4 months to flush my kidneys AUDIT-C Answer Date Recorded Q1: How often [...] Information Value Date Recorded Sex Assigned at Male 01/10/2025 8:19 AM EDT Legal Sex Male 11:47 AM EDT Gender Identity Not on file Sexual Orientation Not on file documented as of this encounter Last Filed Vital Signs Vital Sign Reading Time Taken Comments Blood Pressure 130/88 01/17/2025 10:06 AM EST Pulse 68 01/17/2025 10:06 AM EST Temperature 36.6 C (97.8 F) 01/17/2025 10:06 AM EST Respiratory Rate 18 01/17/2025 10:06 AM EST Oxygen Saturation 97% 01/17/2025 10:06 AM EST Inhaled Oxygen Concentration - - Weight 115 kg (254 lb) 01/17/2025 10:06 AM EST Height 177.8 cm (5' 10 ) 01/17/2025 10:06 AM EST Body Mass Index 36.45 01/17/2025 10:06 AM EST documented in this encounter Progress Notes * Crystal Pederson APRN - 01/17/2025 10:00 AM EST New Patient Office Visit Encounter Date: 01/17/2025 Patient Name: Eric Dinero DOB: 1965 PCP: Lynette Lopez APRN Referring Provider: No ref. provider found Chief Complaint: Recent TIA vs stroke aborted by TNK History of Present Illness: Eric Dinero is a 60 y.o. male who is here today to establish care.Patient has known diagnosis of [place] (data deficient, no intervention, occurred in his 30s), reported A-fib at age 19 (also data deficient), CAD, diverticulitis, arthritis, and tobacco abuse who presents with acute onset left arm weakness, right leg weakness, left-sided sensory loss. Symptom onset @ 06:00. NIHSS 4. SBP 140s. CT head negative for acute abnormality. CT perfusion negative. CTA head andneck negative for flow-limiting stenosis no LVO or aneurysm. Patient was a candidate for imaging and did receive IV TNK at 08:16. MRI of the brain was negative for any acute ischemia. Patient was discharged home on aspirin and high intensity statin. Patient reports that he is doing better overall. He does endorse feeling that he has mild left sided weakness still. This could represent a small stroke not visualized on MRI. TNK theoretically may have lessened the burden of stroke. Encouraged ongoing tight management of all of his underlying riskfactors. Encouraged smoking cessation. He reports a pre-syncopal episode in November at another facility. He has established with cardiology and is currently undergoing a cardiac workup which I feelis appropriate as his inpatient workup for stroke did not reveal any vestibular basilar insufficiency for which would cause syncope. He has completed a 30-day heart monitor which was negative for atrial fibrillation or any other concerning arrhythmia. He has recently had a carotid ultrasound which did show mild plaque with stenosis of less than 50% bilaterally. Stroke Risk Factors: hyperlipidemia, hypertension, and smoking Subjective Review of Systems: Review of Systems Constitutional: Negative for activity change, appetite change, chills, diaphoresis, fatigue, fever,unexpected weight gain and unexpected weight loss. HENT: Negative for trouble swallowing. Eyes: Negative for photophobia and visual disturbance. Respiratory: Negative for cough and shortness of breath. Cardiovascular: Negative for chest pain, palpitations and leg swelling. Gastrointestinal: Negative for blood in stool. Musculoskeletal: Negative for gait problem. Neurological: Positive for syncope and weakness. Negative for dizziness, tremors, seizures, facial asymmetry, speech difficulty, light-headedness, numbness, headache, memory problem and confusion. Psychiatric/Behavioral: Negative for depressed mood. The patient is not nervous/anxious. Past Medical History: Past Medical History: Diagnosis Date Arthritis Back pain Cataracts, bilateral Cluster headache Coronary artery disease Difficulty walking Diverticulitis GERD (gastroesophageal reflux disease) Headache, tension-type High triglycerides History of heart attack History of kidney stones History of skull fracture [place] (hard of hearing) Leaky heart valve Migraine Peripheral neuropathy Smoker Stroke Wears glasses Past Surgical History: Past Surgical History: Procedure Laterality Date COLON RESECTION N/A 12/29/2017 Procedure: OPEN LOW ANTERIOR COLON RESECTION; Surgeon: Armen Peralta MD; Location: [facility]; Service: General COLON SURGERY times 2 COLONOSCOPY 11-26-17 KIDNEY SURGERY Left Family History: Family History Problem Relation Name Age of Onset Diabetes Mother COPD Mother Emphysema Mother Heart disease Mother Asthma Mother Hypertension Mother Neuropathy Mother Heart failure Father Stroke Father No Known Problems Sister No Known Problems Brother No Known Problems Maternal Grandmother No Known Problems Maternal Grandfather No Known Problems Paternal Grandmother No Known Problems Paternal Grandfather Social History: Social History Socioeconomic History Marital status: Tobacco Use Smoking status: Every Day Current packs/day: 1.00 Average packs/day: 1 pack/day for 48.0 years (48.0 ttl pk-yrs) Types: Cigarettes Smokeless tobacco: Current Types: Snuff Tobacco comments: one pack every 3-4 days. smoked for 40 years Vaping Use Vaping status: Never Used Substance and Sexual Activity Alcohol use: Not Currently Comment: 1 beer every 3-4 months to flush my kidneys Drug use: Never Sexual activity: Yes Partners: Female Medications: Current Outpatient Medications: aspirin 81 MG EC tablet, Take 1 tablet by mouth Daily., Disp: 30 tablet, Rfl: 1 Allergies: Allergies Allergen Reactions Benadryl [Diphenhydramine Hcl] Anaphylaxis Latex Other (See Comments) Added based on information entered during case entry, please review and add reactions, type, and severity as needed-blood blisters Objective Physical Exam: Vital Signs: Vitals: 01/17/25 1006 BP: 130/88 BP Location: Left arm Patient Position: Sitting Cuff Size: Adult Pulse: 68 Resp: 18 Temp: 97.8 ??F (36.6 ??C) TempSrc: Infrared SpO2: 97% Weight: 115 kg (254 lb) Height: 177.8 cm (70 ) PainSc: 4 PainLoc: Back Body mass index is 36.45 kg/m??. Physical Exam Vitals and nursing note reviewed. Constitutional: General: He is not in acute distress. Appearance: Normal appearance. He is normal weight. He is not ill-appearing. HENT: Head: Normocephalic and atraumatic. Nose: Nose normal. Mouth/Throat: Mouth: Mucous membranes are moist. Eyes: Extraocular Movements: Extraocular movements intact. Pupils: Pupils are equal, round, and reactive to light. Cardiovascular: Rate and Rhythm: Normal rate and regular rhythm. Pulses: Normal pulses. Pulmonary: Effort: Pulmonary effort is normal. No respiratory distress. Skin: General: Skin is warm and dry. Neurological: Mental Status: He is alert and oriented to person, place, and time. Cranial Nerves: No cranial nerve deficit. Sensory: No sensory deficit. Motor: Weakness present. Coordination: Coordination normal. Gait: Gait normal. Comments: Very sublte left sided weakness 4+/5. No drift any extremity Psychiatric: Mood and Affect: Mood normal. Behavior: Behavior normal. Modified Lotus Score: 0 0 No Symptoms 1 No significant disability. Able to carry out all usual activities, despite some symptoms. 2 Slight disability. Able to look after own affairs without assistance, but unable to carry out allprevious activities. 3 Moderate disability. Requires some help, but able to walk unassisted. 4 Moderately severe disability. Unable to attend to own bodily needs without assistance, and unableto walk unassisted. 5 Severe disability. Requires constant nursing care and attention, bedridden, incontinent. 6 Imaging Reviewed: -CTH wo on 10/19/2024 images were personally reviewed and showed no acute ischemic or hemorrhagic stroke. Repeat CT head from 10/20/2024 images were personally reviewed and showed no evidence of hemorrhage or acute ischemia -CTA of the head and neck images from 10/19/2024 were personally reviewed and showed no flow limitingstenosis or LVO -MRI brain images from 10/20/2024 were personally reviewed and showed no ischemic or hemorrhagic stroke -Transthoracic echocardiogram from 10/19/2024 report was personally reviewed and showed left ventricular ejection fraction of 55%, no left atrial dilation and negative bubble study Laboratory Results: Hemoglobin Date Value Ref Range Status 10/30/2024 16.0 13.0 - 17.7 g/dL Final Hematocrit Date Value Ref Range Status 10/30/2024 46.7 37.5 - 51.0 % Final Platelets Date Value Ref Range Status 10/30/2024 197 140 - 450 10*3/mm3 Final Hemoglobin A1C Date Value Ref Range Status 10/20/2024 5.71 (H) 4.80 - 5.60 % Final LDL Cholesterol Date Value Ref Range Status 10/20/2024 149 (H) 0 - 100 mg/dL Final AST (SGOT) Date Value Ref Range Status 10/30/2024 22 1 - 40 U/L Final Comment: Specimen hemolyzed. Result may be falsely elevated. ALT (SGPT) Date Value Ref Range Status 10/30/2024 24 1 - 41 U/L Final Assessment / Plan Assessment/Plan: #Left arm weakness s/p TNK. TIA vs stroke aborted by TNK #HTN #HLD #Tobacco abuse -Etiology of patient's likely from uncontrolled risk factors -Continue aspirin 81 mg daily -Continue rosuvastatin 40 mg nightly for secondary stroke prevention. Target LDL level of less than70. LDL from 10/20/2024 was 149 -Target blood pressure goals of normotension -Smoking cessation -monitor for A fib -Activity as tolerated, fall risk precautions -Heart healthy diet -Tight control of vascular risk factors -Reviewed s/sxs of stroke and when to call 911 #Tobacco abuse, ongoing -Smokes 1 PPD -Smoking cessation education provided #Pre-syncopal episode -Established and following with cardiology at OSH -Completed 30 day quality assurance monitor body which was unremarkable -Carotid U/S 12/27 showed mild atherosclerosis bilaterally, <50% -CTA H/N from recent stroke admission unremarkable for vertebrobasilar causes -Recommend to check BP twice daily and keep a log for PCP and cardiology. -Would recommend to avoid hypotension. BP goal ideally 110-140/60-80 -Stay well hydrated -Change positions slowly -Avoid bearing down Discussed the importance of medication compliance and lifestyle modifications (adequate blood pressure control, adequate control of hyperlipidemia, adequate glycemic control, increase physical activity, and healthy diet) to help reduce the risk of future cerebrovascular events. Also discussed the signs symptoms that would warrant the patient return back to the emergency department including unilateral weakness, unilateral numbness, visual disturbances, loss of balance, speech difficulties, and/or a sudden severe headache. Follow Up: Return in about 6 months (around 07/17/2025). Patient or patient computer help desk representative verbalized consent for the use of Ambient Listening during the visit with Crystal Pederson APRN for chart documentation. 02/07/2025 09:11 EST Crystal Pederson APRN [facility] Neuro Stroke documented in this encounter Plan of Treatment Upcoming Encounters Date Type Department Care Team (Late st Contact Info) Description 07/18/2025 9:00 AM EDT Office Visit [facility] NEUROLOG[facility] [address] [place], [place] [id number] Crystal Pederson APRN [address] [facility] [address] [address] documented as of this encounter Visit Diagnoses Diagnosis History of TIA (transient ischemic attack)- Primary Primary hypertension Unspecified essential hypertension Mixed hyperlipidemia Tobacco abuse Tobacco use disorder Syncope and collapse documented in this encounter Care Teams Tapper Helper Relationship Specialty Start Date End Date Lynette Lopez APRN [address] [place] [address] PCP - General 01/10/25 documented as of this encounter
--- OUTSIDE RECORDS SUMMARY | 2025-03-14 06:32 | XMS_ITS | Encounter Summary ---
Author Organization [facility] Address [address] [place] [address] Care Team Providers Care Videotape Recording Engineer Name Role Phone JohnLynette mckeon MARGARET Primary Care Provider [phone] Encounter Details Date Type Department Care Team (Latest Contact Info) Description 01/17/2025 Travel Social History Tobacco Use Types Packs/Day Years Used Date Smoking Tobacco: Every Day Cigarettes 1 48 Smokeless Tobacco: Current Snuff Comments:one pack every [...] on file documented as of this encounter Plan of Treatment Upcoming Encounters Date Type Department Care Team (Late st Contact Info) Description 07/18/2025 9:00 AM EDT Office Visit [facility] [address] [place] [address] Crystal Pederson APRN [address] [place] [id number] documented as of this encounter Visit Diagnoses Not on filedocumented in this encounter Care Teams Videotape Recording Engineer Relationship Specialty Start Date End Date Lynette Lopez APRN [address] [place], [place] [id number] PCP - General 01/10/25 documented as of this encounter
--- OUTSIDE RECORDS SUMMARY | 2025-03-14 06:32 | XMS_ITS | Encounter Summary ---
Author Organization [facility] Address [address] [place] [address] Care Team Providers Care Medical Examiner Name Role Phone JohnLynette mckeon MARGARET Primary Care Provider Encounter Details Date Type Department Care Team (Late st Contact Info) Description 01/18/2025 Patient rounding ([facility]) [facility] [address] [facility] [address] [place] [address] Teresa Khan RegSched Rep Social History Tobacco Use Types Packs/Day Years [...] help finding or keeping work or a dracy b? Not on file 12/23/2022 Disabilities Answer [...] on file documented as of this encounter Progress Notes * Teresa Khan RegSched Rep - 01/18/2025 2:52 PM EST January 18, 2025 Gino, victoria I speak with Eric Dinero? My name is Teresa I am with [facility] [address] [place] [address] [place] [phone] . Before we get started july I verify your date of ? 1965 I am calling to officially welcome you to our practice and ask about your recent visit. Is this a good time to talk? yes Tell me about your visit with us. What things went well? Pt stated that he had 3 phone calls today from [facility]. He was satisfied with the visit. We're always looking for ways to make our patients' experiences even better. Do you have recommendations on ways we may improve? Overall were you satisfied with your first visit to our practice? I appreciate you taking the time to speak with me today. Is there anything else I can do for you? Thank you, and have a great day. documented in this encounter Plan of Treatment Upcoming Encounters Date Type Department Care Team (Late st Contact Info) Description 07/18/2025 9:00 AM EDT Office Visit [facility] [address] [facility] [address] [place], [place] [id number] Crystal Pederson APRN [address] [facility] [address] [place], [place] [id number] documented as of this encounter Visit Diagnoses Not on filedocumented in this encounter Care Teams Medical Examiner Relationship Specialty Start Date End Date Lynette Lopez APRN [address] [place], [place] [id number] PCP - General 01/10/25 documented as of this encounter
--- OUTSIDE RECORDS SUMMARY | 2025-03-14 06:32 | XMS_ITS | Encounter Summary ---
Author Organization [facility] Address [address] [place] [address] Care Team Providers Care Geochemistry Teacher Name Role Phone JohnLynette mckeon MARGARET Primary Care Provider [phone] Reason for Visit * Reason Onset Date Comments Hopkins Score 01/18/2025 Encounter Details Date Type Department Care Team (Late st Contact Info) Description 01/18/2025 Call Center Programs [facility] N[facility] CALL [facility] [address] [place] [phone] Jean Pierre Souza, SURYA Social History Tobacco Use Types Packs/Day Years [...] on file documented as of this encounter Miscellaneous Notes * Outreach Note - Jean Pierre Souza RN - 01/18/2025 11:44 AM EST Images from the original note were not included. Stroke Hopkins Survey Flowsheet Row Responses Facility patient discharged from? [facility] Attempt successful Yes Call start time 1144 Person spoke with today (if not patient) and relationship Patient Call end time 1149 Patient location 30 days post discharge if known Home Was the patient readmitted within 30 days of discharge? No Could you live alone without any help from another person? Yes [Independent with ADL's.] Can you do everything that you were doing right before your stroke even if slower and not as much? Yes [Patient reports back to work. 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 No [Patient reports that he notices some sensory difference between his right and left hand, but otherwise no residual deficits.] Can you walk from one room to another without help from another person? Yes Can the patient sit up in bed without any help? Yes Call Center Hopkins Score 1 Hopkins score call completed Yes Comments Patient reports that he has some sensory difference between his right and left hand, but otherwise no residual symptoms. He states that he hasnt completely gotten his strength back. Patient had neuro HEELER MACHINE appt yesterday in office. JEAN PIERRE Boss - Registered Nurse documented in this encounter Plan of Treatment Upcoming Encounters Date Type Department Care Team (Late st Contact Info) Description 07/18/2025 9:00 AM EDT Office Visit [facility] NEUR[facility] [address] [place] [address] [address] [place], [place] [phone] Crystal Pederson APRN [address] [facility] [address] [place], [place] [phone] documented as of this encounter Visit Diagnoses Not on filedocumented in this encounter Care Teams Geochemistry Teacher Relationship Specialty Start Date End Date Lynette Lopez APRN [address] [place], [place] [id number] PCP - General 01/10/25 documented as of this encounter
--- OUTSIDE RECORDS SUMMARY | 2025-03-14 06:33 | XMS_ITS | Clinical Summary ---
[facility] Address [address] [place] [address] Care Team Providers Care Gauge Maker Apprentice Name Role Phone Lynette Lopze MARGARET Primary Care Provider [phone] Allergies Active Allergy Reactions Criticality Noted Date Comments Diphenhydramine Hcl Anaphylaxis High 12/29/2017 Latex Other (See Comments) 12/23/2017 Added based on information entered during case entry, please review and add reactions, type, and severity as needed-blood blisters Medications aspirin 81 MG EC tablet Take 1 tablet by mouth Daily. 30 tablet 1 10/20/2024 Active Active Problems Problem Noted Date [...] 12/27/2017 Coronary artery disease Overview (07/10/2020): Reported MN 30's. No hx of interventions. Myocardial perfusion stress test 06/14/2020: No ischemia, EF 68% Echo 06/01/20: with normal EF, mild dilation of aortic root, grade 1 diastolic dysfunction. No significant valvular disease. GERD (gastroesophageal reflux disease) Resolved Problems Problem Noted Date Diagnosed Date Resolved Date Acute CVA (cerebrovascular accident) 10/19/2024 10/20/2024 Encounters Date Type Department Care Team Description 01/18/2025 Patient rounding ([facility] only) [facility] [address] [facility] [address] [place] [phone] Teresa Khan RegSched Rep 01/18/2025 Call Center Programs [facility] [address] [place] [address] Zulay Souza RN 01/17/2025 10:00 AM EST Office Visit [facility] [address] [facility] [address] [place] [id number] Crystal Pederson APRN History of TIA (transient ischemic attack) (Primary Dx); Primary hypertension; Mixed hyperlipidemia; Tobacco abuse; Syncope and collapse 01/17/2025 Travel from Last 3 Months Family History Medical History Relation Name Comments No Known Problems Brother Heart failure Father Stroke Father No Known Problems Maternal Grandfather No Known Problems Maternal Grandmother Asthma Mother COPD Mother Diabetes Mother Emphysema Mother Heart disease Mother Hypertension Mother Neuropathy Mother No Known Problems Paternal Grandfather No Known Problems Paternal Grandmother No Known Problems Sister Relation Name Status Comments Brother Alive Father Maternal Grandfather Maternal Grandmother Mother Paternal Grandfather Paternal Grandmother Sister Alive Social [...] Mass Index 36.45 01/17/2025 10:06 AM EST Plan of Treatment Upcoming Encounters Date Type Department Care Team (Late st Contact Info) Description 07/18/2025 9:00 AM EDT Office Visit [facility] [address] [facility] [address] [place], [place] [id number] Bg Crystal Garth, APPLICATIONS SYSTEMS ANALYST [address] [facility] [address] [address] Health Maintenance Due Date Last Done Comments Pneumococcal Vaccine 50+ (1 of 2 - PCV) 02/03/1984 TDAP/TD VACCINES (1 - Tdap) 02/03/1984 COLOGUARD 2010 COLON CANCER SCREENING [address] COLONOGRAPHY 2010 FECAL OCCULT BLOOD TEST 2010 FIT Testing (1 year) 2010 ZOSTER VACCINE (1 of 2) 2015 ANNUAL PHYSICAL 12/23/2017 HEPATITIS C SCREENING 12/23/2017 INFLUENZA VACCINE 10/13/2024 LUNG CANCER SCREENING 10/19/2025 10/19/2024 LIPID PANEL 10/20/2025 10/20/2024 COLONOSCOPY 02/11/2033 02/11/2023 COLORECTAL CANCER SCREENING 02/11/2033 Procedures Procedure Name Priority Date/Time Associated Diagnosis Comments SCANNED - IMAGING 02/05/2025 LIPID PANEL Routine 10/20/2024 2:[address] ANGIOGRAM CHEST W WO CONTRAST STAT 10/19/2024 8:13 AM EDT SCANNED - COLONOSCOPY 02/11/2023 from Last 3 Months or Most Recently Relevant to Health Maintenance Results * IMAGING SCANNED (02/05/2025) Anatomical Region Laterality Modality Radiographic Gely ging [facility] DIAGNOSTIC IMAGING ORDERA BLES Final Result * (ABNORMAL) Lipid Panel (10/20/2024 2:18 AM EDT) Total Cholesterol 208(H) 0 - 200 mg/dL 10/20/2024 2:56 AM EDT [facility] Triglycerides 114 0 - 150 mg/dL 10/20/2024 2:56 AM EDT [facility] HDL Cholesterol 38(L) 40 - 60 mg/dL 10/20/2024 2:56 AM EDT [facility] LDL Cholesterol 149(H) 0 - 100 mg/dL 10/20/2024 2:56 AM EDT [facility] VLDL Cholesterol 21 5 - 40 mg/dL 10/20/2024 2:56 AM EDT [facility] LDL/HDL Ratio 3.87 10/20/2024 2:56 AM EDT [facility] Blood Line / Unknown 10/20/2024 2: 18 AM EDT 10/20/2024 2:31 AM EDT [facility] - 10/20/2024 2:56 AM EDT Cholesterol [...] is calculated using the NIH LDL-C calculation. us Aura Freeman APRN LAB BLOOD ORDERABLES Final Result [facility]
[address] [place] [address], * CT Angiogram Chest (10/19/2024 8:13 AM [...] MD 10/19/2024 8:44 AM EDT Workstation ID: [id number] Sondra 10/19/2024 8:[address] ANGIOGRAM CHEST, [...] MD 10/19/2024 8:44 AM EDT Workstation ID: [id number] Wang Alatorre MD IMG CT ORDERABLES Final Re sult * SCANNED - COLONOSCOPY (02/11/2023) [facility] CHART REVIEW TABS Final Re sult from Last 3 Months or Most Recently Relevant to Health Maintenance Insurance [facility] PPO Advance Directives * CPR (Attempt to Resuscitate) [...] Of Support Discussed With: Patient Care Teams Gauge Maker Apprentice Relationship Specialty Start Date End Date Lynette Lopez APRN [address] [id number] PCP - General 01/10/25
--- NOTE | 2025-03-14 07:00 | CT_ITS ---
FINAL REPORT TECHNIQUE: Thin section axial images were obtained through the paranasal sinuses without contrast. Reconstruction images were obtained from the axial data. Exam was performed using dose reduction techniques such as automated exposure control, adjustment of the mA and kV according to patient size, and use of iterative reconstruction technique. 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 There is mild mucoperiosteal thickening of the right maxillary sinus. Remaining paranasal sinuses are clear. Right maxillary infundibulum appears occluded by mucoperiosteal thickening. There is mild left nasal septal deviation. The mastoids are clear. The patient is edentulous. The to sockets are still visible in the patient may have had recent dental extraction. IMPRESSION: No evidence of acute sinusitis. 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 Reviewed, Interpreted and Dictated by Corina Edmondson MD Transcribed by Trang Hernandez Authenticated and [facility]
--- NOTE | 2025-03-14 07:00 | CT_ITS ---
FINAL REPORT TECHNIQUE: Thin section axial CT images with coronal and sagittal reformats were performed through the neck. This study was performed with techniques to keep radiation doses as low as reasonably achievable (ALARA). Individualized dose reduction techniques using automated exposure control or adjustment of mA and/or kV according to the patient''s size were employed. CLINICAL HISTORY: View sinus cavities chronic cough, left sided throat that triggers cough, syncope, postnasal drainage COMPARISON: None FINDINGS: Exam is limited without IV contrast. The nasopharynx, oropharynx, epiglottis, and larynx are without acute abnormality. The thyroid gland and salivary glands are unremarkable. There are small bilateral posterior triangle lymph nodes. No lymphadenopathy. No fluid collection. Subcutaneous lesion along the right upper back measuring 21 mm could be sebaceous cyst. The patient is edentulous. The tooth sockets are visible in the patient may have had recent dental extraction. IMPRESSION: No acute abnormality on this unenhanced exam of the neck soft tissues. Reviewed, Interpreted and Dictated by Corina Edmondson MD Transcribed by Trang Hernandez Authenticated and [facility]
== END 2025-03-14 23:59 | disposition home or self-care (01) ==
LOC: RAD 06:31
PROVIDERS: Visit Provider Nurse Practitioner
DX: J34.89 Other specified disorders of nose and nasal sinuses (principal); J34.2 Deviated nasal septum; R55 Syncope and collapse; R05.3 Chronic cough
CPT/HCPCS: 70486; 70490